=== PATIENT | male | born 1935 | race Caucasian/White ===

== ENCOUNTER 2022-11-29 01:10 | Inpatient (IN) | payer MEDICARE, OTHER ==
[~2022-11-29] VITALS: Ht 175.3 cm; Wt 92.9 kg
[~2022-11-29 01:10] MED LIST: ASPI-1071 PO; ATOR20TA PO; KEP500T PO; LISI20TA28 PO; NOR5T MT; VARD20TA39 PO
[2022-11-29 01:58] LABS: BASOPHILS % (AUTO) 0.3 % (0-1); EOSINOPHILS % (AUTO) 0.3 % (0-6); HEMATOCRIT 47.4 % (42.0-52.0); HEMOGLOBIN 15.6 g/dl (14.0-17.9); LYMPHOCYTES # (AUTO) 0.7 X10'3 (1.1-4.8); LYMPHOCYTES % (AUTO) 5.3 % (21-51); MEAN CORPUSCULAR HEMOGLOBIN 31.7 PG (27.0-31.0); MEAN CORPUSCULAR HGB CONC 32.8 g/dL (33.0-36.5); MEAN CORPUSCULAR VOLUME 96.6 FL (78-98); MEAN PLATELET VOLUME 9.6 FL (7.4-10.4); MONOCYTES # (AUTO) 1.3 X10'3 (0-0.9); MONOCYTES % (AUTO) 9.8 % (2-12); NEUTROPHILS # (AUTO) 10.8 X10'3 (1.8-7.7); NEUTROPHILS % (AUTO) 84.3 % (42-75); PLATELET COUNT 165 X10'3 (140-440); RED BLOOD COUNT 4.91 X10'6 (4.70-6.10); RED CELL DISTRIBUTION WIDTH 13.9 % (11.5-14.5); WHITE BLOOD COUNT 12.8 X10'3 (4.5-11.0)
[2022-11-29] MEDS ORDERED: dexamethasone sod phosphate 10mg/ml inj IV STA (02:07)
[2022-11-29] MEDS ORDERED: ipratropium/albuterol 3ml nebule NEB ONE (02:10)
[2022-11-29 02:18] LABS: D-DIMER 0.97 MG/L FEU (0-0.50)
[2022-11-29] MEDS ORDERED: CefTRIAXone 2gm/D5W 50ml BAG 50 ML IV ONE (02:20)
[2022-11-29 02:25] LABS: ALANINE AMINOTRANSFERASE 20 U/L (12-78); ALBUMIN 4.2 G/DL (3.4-5.0); ALBUMIN/GLOBULIN RATIO 1.2 (1.1-1.5); ALKALINE PHOSPHATASE 93 IU/L (46-116); ANION GAP 12 (8-16); ASPARTATE AMINO TRANSFERASE 14 U/L (10-37); BILIRUBIN,TOTAL 1.1 MG/DL (0.1-1.0); BLOOD UREA NITROGEN 20 MG/DL (7-18); BUN/CREATININE RATIO 17.2 (5.4-32.0); CALCIUM 8.9 MG/DL (8.5-10.1); CHLORIDE 104 MMOL/L (99-107); CREATININE 1.16 MG/DL (0.60-1.10); GLUCOSE 113 MG/DL (70-104); POTASSIUM 3.8 MMOL/L (3.5-5.1); SODIUM 143 MMOL/L (135-145); TOTAL PROTEIN 7.7 G/DL (6.4-8.2); eGFR 60 ML/MIN
[2022-11-29 02:31] LABS: C-REACTIVE PROTEIN 8.37 MG/DL (0.0-0.5); LACTATE DEHYDROGENASE 185 U/L (85-227)
[2022-11-29 02:34] LABS: FERRITIN 367 NG/ML (26-388)
[2022-11-29] MEDS ORDERED: normal saline 1000ml 1,000 ML IV ONE ×2 (02:35→02:55)
[2022-11-29] MEDS ORDERED: iohexol 350MG/ML 100ml bottle IV ONE (02:48)
[2022-11-29] MEDS ORDERED: normal saline 1000ml 1,000 ML IV SCH (02:50)
[2022-11-29] MEDS ORDERED: MULT-1085 PO (04:15)
[2022-11-29] MEDS ORDERED: ASPI-1071 PO (04:19)
[2022-11-29] MEDS ORDERED: ATOR20TA10 PO (04:19)
[2022-11-29] MEDS ORDERED: ATOR20TA66 PO (04:20)
[2022-11-29] MEDS ORDERED: magnesium Cl slow-release 64mg tablet PO PRN (04:25)
[2022-11-29] MEDS ORDERED: potassium Cl 40MEQ/1/2NS 520ml 520 ML IV PRN (04:25)
[2022-11-29] MEDS ORDERED: ondansetron/PF 4mg/2ml inj IV PRN (04:25)
[2022-11-29] MEDS ORDERED: mag hydrox/Alum hydrox/simeth 30ml oral suspension PO PRN (04:25)
[2022-11-29] MEDS ORDERED: PERFLUTREN PROTEIN-A MICROSPHR (Optison) 0.22 MG/ML 3ML VIAL IV ONE (04:25)
[2022-11-29] MEDS ORDERED: magnesium 4gm in 100ml NS 100 ML IV PRN (04:25)
[2022-11-29] MEDS ORDERED: acetaminophen 325mg tablet PO PRN (04:25)
[2022-11-29] MEDS ORDERED: magnesium hydroxide 30ml (MOM) UD suspension PO PRN (04:25)
[2022-11-29] MEDS ORDERED: potassium Cl 20 mEq SR tablet PO PRN ×2 (04:25)
[2022-11-29] MEDS: normal saline 1000ml 1,000 ML IV SCH ×2 (04:31→20:31)
[2022-11-29 06:50] LABS: POTASSIUM 4.1 MMOL/L (3.5-5.1)
[2022-11-29] MEDS ORDERED: dexamethasone inj 6 MG in dextrose 5%-water 100 ML IV SCH (08:00)
[2022-11-29] MEDS: K and/or MAG REPLACEMENT MC SCH ×2 (08:00→20:00)
[2022-11-29 08:24] LABS: CLARITY,URINE SLIGHTLY CLOUDY (Clear); COLOR,URINE YELLOW (Yellow); GLUCOSE, URINE NEGATIVE (Neg); KETONES,URINE TRACE mg/dl (Neg); LEUKOCYTE ESTERASE ,URINE NEGATIVE (Neg); NITRITES, URINE NEGATIVE (Neg); OCCULT BLOOD,URINE TRACE-INTACT (Neg); PH,URINE 5.5 (4.8-8.0); PROTEIN,URINE TRACE mg/dl (Neg); UROBILINOGEN,URINE 0.2 E.U/dL (0.2-1.0)
[2022-11-29 08:31] LABS: UA COLLECTION TYPE CLN CATCH MIDSTREAM
[2022-11-29 08:34] LABS: MUCUS STRANDS FEW /LPF (Neg); SQUAMOUS EPITHELIAL CELL,UR FEW /LPF (FEW)
[2022-11-29 08:38] LABS: BACTERIA,URINE FEW /HPF (Neg); TRANSITIONAL EPI CELLS,URINE FEW /HPF
[2022-11-29 08:39] LABS: RBC,URINE 0-2 /HPF (0-2); WBC,URINE 0-4 /HPF (0-4)
[2022-11-29] MEDS: heparin, porcine 5000 units/ml vial SQ SCH ×2 (08:45→20:32)
[2022-11-29] MEDS: dexamethasone 4mg/ml inj IV SCH ×2 (08:46→20:32)
[2022-11-29] MEDS: multivitamins, therapeutics tablet PO SCH (08:47)
[2022-11-29] MEDS: docusate sod 100mg capsule PO SCH ×2 (08:47→20:31)
[2022-11-29] MEDS: aspirin 81mg, enteric-coated 1 TAB TABLET.DR PO SCH (08:47)
[2022-11-29] MEDS: atorvastatin 20mg tablet PO SCH (08:48)
[2022-11-29] MEDS: lisinopril 20mg tablet PO SCH (08:48)
--- NOTE | 2022-11-29 09:36 | NUR ---
Oxygen test done for patient. O2 nasal canula removed to check how patient is oxegenating on room air. After two minutes without oxygen treatment patients O2 sat dropped to 88. Patient was able to take a deep breath without coughing. Patient Began to purse his lips. Lips began to have a blue tint after 6 minutes without oxygen treatment. Oxygen test done while patient was sitting up in bed. Oxygen was reapplied to patient. O2 sat recovered to 94 after 3L of oxygen was placed on patient. Dr. Momin paged. PCU floor refusing to take patient stating, "we don't have a reverse isolation room. We are trying to see if he can go to the surgical floor or be discharged". Patient preferes to be discharged. He does not have access to oxygen at home.
[2022-11-29] MEDS ORDERED: REMDESIVIR INJ 200 MG in normal saline 100ml IV soln 100 ML IV ONE (09:40)
[2022-11-29 10:59] VITALS: BP 147/68
--- NOTE | 2022-11-29 14:14 | NUR ---
O2 Sat at rest on room air:__84_% If below 89%: Recovery O2 Sat at rest on __3_LPM:__89_%:___94% via NC (mask/nasal cannula, etc..) No further documentation is necessary. If O2 Sat did not drop below 89% on room air,ambulate patient on room air. O2 Sat while ambulating on room air:___% Recovery O2 Sat while ambulating on ___LPM:___% No further documentation is necessary. If patient does not drop below 89% while ambulating, he/she does not qualify for home O2.
[2022-11-29] MEDS ORDERED: NIRM1TAB PO (14:47)
[2022-11-29] MEDS ORDERED: OCUVITE PO (14:49)
--- NOTE | 2022-11-29 15:27 | NUR ---
Have permission from pt to speak with Orin, #[phone]. Called and answered all questions satisfactorily.
--- NOTE | 2022-11-29 18:02 | NUR ---
Pt self d/c L forearm IV. Blood on floor and linens. This RN cleaned floor and linen change. Will H/O to noc shift. MRSA sent to lab.
--- NOTE | 2022-11-29 18:25 | NUR ---
Patient in room [facility]. I have received report from YESICA Bledsoe and had the opportunity to ask questions and assume patient care.
--- NOTE | 2022-11-29 18:29 | NUR ---
Gave H/O report to Kiersten in Surgical to assume care.
[2022-11-29 19:15] VITALS: BP 146/68
[2022-11-29 22:00] VITALS: BP 155/85
[2022-11-30 01:30] VITALS: BP 148/92
--- NOTE | 2022-11-30 01:35 | NUR ---
notified Dr. Martines regarding pt going into A flutter, when previously was sinus rhythm. Vital signs taken, pt assessed, was sleeping and is gone back to sleep. Dr. Martines did not want any interventions performed. pt asleep and appears to be in NO distress.
[2022-11-30 03:10] VITALS: BP 136/94
[2022-11-30 04:42] LABS: BASOPHILS % (AUTO) 0 % (0-1); EOSINOPHILS % (AUTO) 0 % (0-6); HEMATOCRIT 44.1 % (42.0-52.0); HEMOGLOBIN 14.5 g/dl (14.0-17.9); LYMPHOCYTES # (AUTO) 0.4 X10'3 (1.1-4.8); LYMPHOCYTES % (AUTO) 3.4 % (21-51); MEAN CORPUSCULAR HEMOGLOBIN 31.5 PG (27.0-31.0); MEAN CORPUSCULAR HGB CONC 32.8 g/dL (33.0-36.5); MEAN CORPUSCULAR VOLUME 96.1 FL (78-98); MEAN PLATELET VOLUME 9.7 FL (7.4-10.4); MONOCYTES # (AUTO) 0.5 X10'3 (0-0.9); MONOCYTES % (AUTO) 3.6 % (2-12); NEUTROPHILS # (AUTO) 12.1 X10'3 (1.8-7.7); PLATELET COUNT 181 X10'3 (140-440); RED CELL DISTRIBUTION WIDTH 13.5 % (11.5-14.5)
[2022-11-30 04:52] LABS: D-DIMER 0.48 MG/L FEU (0-0.50)
[2022-11-30 04:57] LABS: ALANINE AMINOTRANSFERASE 18 U/L (12-78); ALBUMIN 3.4 G/DL (3.4-5.0); ALKALINE PHOSPHATASE 77 IU/L (46-116); ANION GAP 10 (8-16); ASPARTATE AMINO TRANSFERASE 29 U/L (10-37); BILIRUBIN,TOTAL 0.8 MG/DL (0.1-1.0); BLOOD UREA NITROGEN 25 MG/DL (7-18); C-REACTIVE PROTEIN 9.32 MG/DL (0.0-0.5); CALCIUM 8.7 MG/DL (8.5-10.1); CHLORIDE 106 MMOL/L (99-107); GLUCOSE 178 MG/DL (70-104); LACTATE DEHYDROGENASE 176 U/L (85-227); MAGNESIUM 2.1 MG/DL (1.5-2.4); PHOSPHORUS 3.3 MG/DL (2.3-4.5); POTASSIUM 3.8 MMOL/L (3.5-5.1); SODIUM 142 MMOL/L (135-145); TOTAL CARBON DIOXIDE 26.4 MMOL/L (24-32); TOTAL PROTEIN 6.7 G/DL (6.4-8.2); eGFR 71 ML/MIN
[2022-11-30 06:00] VITALS: BP 135/85
--- NOTE | 2022-11-30 06:11 | NUR ---
Problems reprioritized. Patient report given, questions answered & plan of care reviewed with YESICA Guevara.
[2022-11-30] MEDS: K and/or MAG REPLACEMENT MC SCH ×2 (08:00→18:41)
[2022-11-30] MEDS: docusate sod 100mg capsule PO SCH ×2 (08:45→20:00)
[2022-11-30] MEDS: lisinopril 20mg tablet PO SCH (08:45)
[2022-11-30] MEDS: atorvastatin 20mg tablet PO SCH (08:45)
[2022-11-30] MEDS: heparin, porcine 5000 units/ml vial SQ SCH (08:45)
[2022-11-30] MEDS: REMDESIVIR INJ 100 MG in normal saline 100ml IV soln 100 ML IV SCH (08:46)
[2022-11-30] MEDS: multivitamins, therapeutics tablet PO SCH (08:46)
[2022-11-30] MEDS: aspirin 81mg, enteric-coated 1 TAB TABLET.DR PO SCH (08:46)
[2022-11-30] MEDS: dexamethasone 4mg/ml inj IV SCH ×2 (08:48→20:48)
[2022-11-30] MEDS: apixaban 5mg tablet PO SCH ×2 (13:06→20:48)
[2022-11-30 14:47] VITALS: BP 115/83
[2022-11-30 18:00] VITALS: BP 145/79
--- NOTE | 2022-11-30 18:25 | NUR ---
Problems reprioritized. Patient report given, questions answered & plan of care reviewed with YESICA Porter.
[2022-11-30 22:00] VITALS: BP 117/93
[2022-12-01] MEDS: normal saline 1000ml 1,000 ML IV SCH ×2 (05:19→16:21)
[2022-12-01 07:00] VITALS: BP 117/90
[2022-12-01 07:06] LABS: BASOPHILS % (AUTO) 0.1 % (0-1); EOSINOPHILS % (AUTO) 0 % (0-6); HEMATOCRIT 43.4 % (42.0-52.0); HEMOGLOBIN 14.4 g/dl (14.0-17.9); LYMPHOCYTES # (AUTO) 0.5 X10'3 (1.1-4.8); LYMPHOCYTES % (AUTO) 3.8 % (21-51); MEAN CORPUSCULAR HEMOGLOBIN 31.9 PG (27.0-31.0); MEAN CORPUSCULAR HGB CONC 33.2 g/dL (33.0-36.5); MEAN CORPUSCULAR VOLUME 95.9 FL (78-98); MEAN PLATELET VOLUME 9.8 FL (7.4-10.4); MONOCYTES # (AUTO) 0.6 X10'3 (0-0.9); MONOCYTES % (AUTO) 4.3 % (2-12); NEUTROPHILS # (AUTO) 12.8 X10'3 (1.8-7.7); NEUTROPHILS % (AUTO) 91.8 % (42-75); PLATELET COUNT 193 X10'3 (140-440); RED BLOOD COUNT 4.53 X10'6 (4.70-6.10); RED CELL DISTRIBUTION WIDTH 13.5 % (11.5-14.5)
[2022-12-01 07:15] LABS: D-DIMER 0.44 MG/L FEU (0-0.50)
[2022-12-01 07:23] LABS: ALANINE AMINOTRANSFERASE 28 U/L (12-78); ALBUMIN 3.1 G/DL (3.4-5.0); ALKALINE PHOSPHATASE 70 IU/L (46-116); ANION GAP 5 (8-16); ASPARTATE AMINO TRANSFERASE 28 U/L (10-37); BILIRUBIN,TOTAL 0.6 MG/DL (0.1-1.0); BLOOD UREA NITROGEN 37 MG/DL (7-18); BUN/CREATININE RATIO 32.7 (5.4-32.0); C-REACTIVE PROTEIN 3.82 MG/DL (0.0-0.5); CALCIUM 8.4 MG/DL (8.5-10.1); CHLORIDE 107 MMOL/L (99-107); CREATININE 1.13 MG/DL (0.60-1.10); GLUCOSE 157 MG/DL (70-104); LACTATE DEHYDROGENASE 161 U/L (85-227); MAGNESIUM 2.1 MG/DL (1.5-2.4); PHOSPHORUS 3.6 MG/DL (2.3-4.5); POTASSIUM 4.1 MMOL/L (3.5-5.1); SODIUM 141 MMOL/L (135-145); TOTAL CARBON DIOXIDE 29.3 MMOL/L (24-32); TOTAL PROTEIN 6.3 G/DL (6.4-8.2); eGFR 62 ML/MIN
[2022-12-01] MEDS: multivitamins, therapeutics tablet PO SCH (07:33)
[2022-12-01] MEDS: apixaban 5mg tablet PO SCH ×2 (07:33→20:03)
[2022-12-01] MEDS: lisinopril 20mg tablet PO SCH (07:33)
[2022-12-01] MEDS: aspirin 81mg, enteric-coated 1 TAB TABLET.DR PO SCH (07:33)
[2022-12-01] MEDS: atorvastatin 20mg tablet PO SCH (07:33)
[2022-12-01] MEDS: docusate sod 100mg capsule PO SCH ×2 (07:34→20:03)
[2022-12-01] MEDS: REMDESIVIR INJ 100 MG in normal saline 100ml IV soln 100 ML IV SCH (07:34)
[2022-12-01] MEDS: dexamethasone 4mg/ml inj IV SCH ×2 (07:34→20:03)
[2022-12-01] MEDS: K and/or MAG REPLACEMENT MC SCH ×2 (08:00→18:45)
[2022-12-01 11:08] VITALS: BP 117/66
[2022-12-01 18:00] VITALS: BP 155/92
--- NOTE | 2022-12-01 18:20 | NUR ---
Problems reprioritized. Patient report given, questions answered & plan of care reviewed with YESICA Muhammad.
[2022-12-01 22:03] VITALS: BP 157/107
[2022-12-02 02:00] VITALS: BP 154/113
--- NOTE | 2022-12-02 06:11 | NUR ---
Problems reprioritized. Patient report given, questions answered & plan of care reviewed with YESICA Guevara.
[2022-12-02 07:00] VITALS: BP 166/89
[2022-12-02 07:54] LABS: BASOPHILS % (AUTO) 0.1 % (0-1); EOSINOPHILS % (AUTO) 0 % (0-6); HEMATOCRIT 43.7 % (42.0-52.0); HEMOGLOBIN 14.7 g/dl (14.0-17.9); LYMPHOCYTES # (AUTO) 0.5 X10'3 (1.1-4.8); LYMPHOCYTES % (AUTO) 4.1 % (21-51); MEAN CORPUSCULAR HEMOGLOBIN 31.9 PG (27.0-31.0); MEAN CORPUSCULAR HGB CONC 33.6 g/dL (33.0-36.5); MEAN CORPUSCULAR VOLUME 95.2 FL (78-98); MEAN PLATELET VOLUME 9.2 FL (7.4-10.4); MONOCYTES # (AUTO) 0.6 X10'3 (0-0.9); MONOCYTES % (AUTO) 5.4 % (2-12); NEUTROPHILS # (AUTO) 10.2 X10'3 (1.8-7.7); NEUTROPHILS % (AUTO) 90.4 % (42-75); PLATELET COUNT 204 X10'3 (140-440); RED CELL DISTRIBUTION WIDTH 13.5 % (11.5-14.5); WHITE BLOOD COUNT 11.3 X10'3 (4.5-11.0)
[2022-12-02 08:00] LABS: D-DIMER 0.45 MG/L FEU (0-0.50)
[2022-12-02] MEDS: K and/or MAG REPLACEMENT MC SCH (08:00)
[2022-12-02] MEDS: docusate sod 100mg capsule PO SCH (08:00)
[2022-12-02] MEDS: aspirin 81mg, enteric-coated 1 TAB TABLET.DR PO SCH (08:00)
[2022-12-02] MEDS: REMDESIVIR INJ 100 MG in normal saline 100ml IV soln 100 ML IV SCH (08:00)
[2022-12-02] MEDS: lisinopril 20mg tablet PO SCH (08:00)
[2022-12-02] MEDS: multivitamins, therapeutics tablet PO SCH (08:01)
[2022-12-02] MEDS: atorvastatin 20mg tablet PO SCH (08:01)
[2022-12-02] MEDS: apixaban 5mg tablet PO SCH (08:01)
[2022-12-02] MEDS: dexamethasone 4mg/ml inj IV SCH (08:02)
[2022-12-02 08:15] LABS: ALANINE AMINOTRANSFERASE 53 U/L (12-78); ALBUMIN 3.2 G/DL (3.4-5.0); ALKALINE PHOSPHATASE 70 IU/L (46-116); ANION GAP 6 (8-16); ASPARTATE AMINO TRANSFERASE 29 U/L (10-37); BILIRUBIN,TOTAL 0.6 MG/DL (0.1-1.0); BLOOD UREA NITROGEN 33 MG/DL (7-18); BUN/CREATININE RATIO 32.7 (5.4-32.0); C-REACTIVE PROTEIN 2.21 MG/DL (0.0-0.5); CALCIUM 8.3 MG/DL (8.5-10.1); CHLORIDE 106 MMOL/L (99-107); CREATININE 1.01 MG/DL (0.60-1.10); GLUCOSE 148 MG/DL (70-104); LACTATE DEHYDROGENASE 225 U/L (85-227); MAGNESIUM 2.2 MG/DL (1.5-2.4); PHOSPHORUS 3.4 MG/DL (2.3-4.5); POTASSIUM 4.3 MMOL/L (3.5-5.1); SODIUM 140 MMOL/L (135-145); TOTAL CARBON DIOXIDE 27.8 MMOL/L (24-32); TOTAL PROTEIN 6.3 G/DL (6.4-8.2); eGFR 70 ML/MIN
[2022-12-02 11:32] VITALS: BP 167/97
--- NOTE | 2022-12-02 11:34 | NUR ---
O2 Sat at rest on room air:86% If below 89%: Recovery O2 Sat at rest on 2LPM:94%:via nasal cannula No further documentation is necessary. If O2 Sat did not drop below 89% on room air,ambulate patient on room air. O2 Sat while ambulating on room air:___% Recovery O2 Sat while ambulating on ___LPM:___% No further documentation is necessary. If patient does not drop below 89% while ambulating, he/she does not qualify for home O2.
[2022-12-02] MEDS ORDERED: PRED10TA PO (13:12)
--- NOTE | 2022-12-02 14:39 | NUR ---
Patient stable and appropriate for discharge home with his . IV and satellite project site monitor removed. All belongings gathered from room. All discharge instructions and education given and reviewed with patient, all questions answered. Oxygen delivered to bedside. educated patient and his tatum on instructions, return demonstration completed. New RX e-scripted to preferred pharmacy.
== END 2022-12-02 14:25 | disposition home or self-care (01) | DRG 177 ==
LOC: ER 01:12 → ED HOLD 04:27 → EDBEDREQ 05:25 → PCU 3S 10:41 → SUR 3N 19:15
PROVIDERS: ADMIT Internal Medicine; ATTEND Family Medicine
PROC: XW033E5 Introduction of Remdesivir Anti-infective into Peripheral Vein, Percutaneous Approach, New Technology Group 5 (ICD-10-PCS; principal; 2022-11-29)
PROC: B32T1ZZ Computerized Tomography (CT Scan) of Left Pulmonary Artery using Low Osmolar Contrast (ICD-10-PCS; 2022-11-29)
PROC: B3201ZZ Computerized Tomography (CT Scan) of Thoracic Aorta using Low Osmolar Contrast (ICD-10-PCS; 2022-11-29)
PROC: B32S1ZZ Computerized Tomography (CT Scan) of Right Pulmonary Artery using Low Osmolar Contrast (ICD-10-PCS; 2022-11-29)
DX: U07.1 COVID-19 (principal); J12.82 Pneumonia due to coronavirus disease 2019; J96.01 Acute respiratory failure with hypoxia; N17.0 Acute kidney failure with tubular necrosis; I10 Essential (primary) hypertension; G47.30 Sleep apnea, unspecified; M17.0 Bilateral primary osteoarthritis of knee; Z86.73 Personal history of transient ischemic attack (TIA), and cerebral infarction without residual deficits; Z87.891 Personal history of nicotine dependence; Z90.49 Acquired absence of other specified parts of digestive tract; Z79.899 Other long term (current) drug therapy; Z79.82 Long term (current) use of aspirin
CPT/HCPCS: 36415; 71045; 71275; 80053; 81001; 82728; 83605; 83615; 83735; 83880; 84100; 84132; 84145; 84484; 85025; 85379; 85384; 86140; 87040; 87081; 87502; 87503; 87635; 93005; 93306; 94640; 94760; 96365; 96375; 99285; C9803; G0378; J0696; J1100; J1644; J3490; J7030; Q9967

== ENCOUNTER 2023-04-26 15:20 | Emergency (ER) | payer MEDICARE, OTHER ==
[~2023-04-26] VITALS: Ht 175.3 cm; Wt 84.0 kg
[~2023-04-26 15:20] MED LIST changes: -ATOR20TA PO; -KEP500T PO; +MULT-1085 PO; -NOR5T MT; +OCUVITE PO; +PRED10TA PO
--- NOTE | 2023-04-26 21:22 | NUR ---
dr connors at bedside and notified of high bp.
[2023-04-26] MEDS ORDERED: ondansetron 4mg rapidly disintigrating tab PO ONE (21:30)
[2023-04-26] MEDS ORDERED: morphine 4 MG/ML inj SYRINge IM ONE (21:30)
[2023-04-26 22:20] LABS: BASOPHILS % (AUTO) 0.4 % (0-1); EOSINOPHILS # (AUTO) 0.2 X10'3 (0-0.9); EOSINOPHILS % (AUTO) 2.3 % (0-6); HEMATOCRIT 48.4 % (42.0-52.0); LYMPHOCYTES # (AUTO) 1.1 X10'3 (1.1-4.8); MEAN CORPUSCULAR HEMOGLOBIN 31.7 PG (27.0-31.0); MEAN CORPUSCULAR HGB CONC 33.1 g/dL (33.0-36.5); MEAN CORPUSCULAR VOLUME 95.6 FL (78-98); MEAN PLATELET VOLUME 8.9 FL (7.4-10.4); MONOCYTES # (AUTO) 0.8 X10'3 (0-0.9); MONOCYTES % (AUTO) 10.1 % (2-12); NEUTROPHILS # (AUTO) 5.6 X10'3 (1.8-7.7); NEUTROPHILS % (AUTO) 73.2 % (42-75); PLATELET COUNT 186 X10'3 (140-440); RED BLOOD COUNT 5.06 X10'6 (4.70-6.10); RED CELL DISTRIBUTION WIDTH 13.2 % (11.5-14.5); WHITE BLOOD COUNT 7.7 X10'3 (4.5-11.0)
[2023-04-26] MEDS ORDERED: HYDR-3965 PO (22:28)
[2023-04-26 22:34] LABS: ALANINE AMINOTRANSFERASE 18 U/L (12-78); ALBUMIN 4.3 G/DL (3.4-5.0); ALBUMIN/GLOBULIN RATIO 1.3 (1.1-1.5); ALKALINE PHOSPHATASE 111 IU/L (46-116); ANION GAP 8 (8-16); ASPARTATE AMINO TRANSFERASE 11 U/L (10-37); BILIRUBIN,TOTAL 0.3 MG/DL (0.1-1.0); BLOOD UREA NITROGEN 22 MG/DL (7-18); CHLORIDE 104 MMOL/L (99-107); CREATININE 1.16 MG/DL (0.60-1.10); GLUCOSE 127 MG/DL (70-104); POTASSIUM 4.1 MMOL/L (3.5-5.1); SODIUM 142 MMOL/L (135-145); TOTAL CARBON DIOXIDE 30.1 MMOL/L (24-32); TOTAL PROTEIN 7.7 G/DL (6.4-8.2); eGFR 60 ML/MIN
[2023-04-26 22:35] LABS: CLARITY,URINE CLEAR (Clear); COLOR,URINE STRAW (Yellow); GLUCOSE, URINE NEGATIVE (Neg); KETONES,URINE NEGATIVE (Neg); LEUKOCYTE ESTERASE ,URINE TRACE (Neg); NITRITES, URINE NEGATIVE (Neg); OCCULT BLOOD,URINE NEGATIVE (Neg); PROTEIN,URINE NEGATIVE (Neg); UROBILINOGEN,URINE 0.2 E.U/dL (0.2-1.0)
[2023-04-26 22:47] LABS: SQUAMOUS EPITHELIAL CELL,UR FEW /LPF (FEW); UA COLLECTION TYPE URINAL
[2023-04-26 22:48] LABS: BACTERIA,URINE NONE SEEN /HPF (Neg); RBC,URINE 0-2 /HPF (0-2); WBC,URINE 0-4 /HPF (0-4)
[2023-04-26 22:58] VITALS: BP 185/92
== END 2023-04-26 22:59 | disposition home or self-care (01) ==
LOC: ER 15:21
DX: S39.012A Strain of muscle, fascia and tendon of lower back, initial encounter (principal); X58.XXXA Exposure to other specified factors, initial encounter; Y93.89 Activity, other specified; Y92.89 Other specified places as the place of occurrence of the external cause; Y99.8 Other external cause status; I10 Essential (primary) hypertension; Z79.899 Other long term (current) drug therapy
CPT/HCPCS: 36415; 74176; 80053; 81001; 85025; 87088; 96372; 99285; J2270

== ENCOUNTER 2024-03-26 12:47 | Emergency (ER) | payer MEDICARE, OTHER ==
[~2024-03-26] VITALS: Ht 175.3 cm; Wt 90.9 kg
[2024-03-26 12:58] VITALS: TEMP 98.2
[2024-03-26 15:10] VITALS: BP 140/83; PULSE 80; RESP 14; O2SAT 97
== END 2024-03-26 15:12 | disposition home or self-care (01) ==
LOC: ER 12:48
DX: J44.9 Chronic obstructive pulmonary disease, unspecified (principal); R09.02 Hypoxemia; I10 Essential (primary) hypertension; Z79.82 Long term (current) use of aspirin; Z79.51 Long term (current) use of inhaled steroids; Z79.899 Other long term (current) drug therapy; Z86.73 Personal history of transient ischemic attack (TIA), and cerebral infarction without residual deficits; Z90.49 Acquired absence of other specified parts of digestive tract; Z98.890 Other specified postprocedural states; Z72.89 Other problems related to lifestyle
CPT/HCPCS: 99284

== ENCOUNTER 2024-07-22 11:40 | Inpatient (IN) | payer MEDICARE, OTHER ==
[~2024-07-22] VITALS: Ht 175.3 cm; Wt 90.9 kg
[~2024-07-22 11:40] MED LIST changes: +CEPH500C2 PO; +LACT1CAP76 PO; -PRED10TA PO; +tamsulosin capsule PO
[2024-07-22 12:47] LABS: BASOPHILS % (AUTO) 0.1 % (0-1); EOSINOPHILS # (AUTO) 0.2 X10'3 (0-0.9); EOSINOPHILS % (AUTO) 0.7 % (0-6); HEMATOCRIT 43.6 % (42.0-52.0); HEMOGLOBIN 14.3 g/dl (14.0-17.9); LYMPHOCYTES # (AUTO) 0.4 X10'3 (1.1-4.8); LYMPHOCYTES % (AUTO) 1.5 % (21-51); MEAN CORPUSCULAR HEMOGLOBIN 31.7 PG (27.0-31.0); MEAN CORPUSCULAR HGB CONC 32.7 g/dL (33.0-36.5); MEAN CORPUSCULAR VOLUME 96.9 FL (78-98); MEAN PLATELET VOLUME 9.5 FL (7.4-10.4); MONOCYTES # (AUTO) 1.2 X10'3 (0-0.9); MONOCYTES % (AUTO) 4.3 % (2-12); NEUTROPHILS # (AUTO) 26.1 X10'3 (1.8-7.7); NEUTROPHILS % (AUTO) 93.4 % (42-75); PLATELET COUNT 239 X10'3 (140-440); RED CELL DISTRIBUTION WIDTH 13.7 % (11.5-14.5)
[2024-07-22 12:50] LABS: WHITE BLOOD COUNT 27.9 X10'3 (4.5-11.0)
[2024-07-22 13:00] LABS: ANION GAP 9 (8-16); BLOOD UREA NITROGEN 44 MG/DL (7-18); BUN/CREATININE RATIO 17.9 (10.0-20.0); CHLORIDE 102 MMOL/L (99-107); CREATININE 2.46 MG/DL (0.60-1.10); GLUCOSE 180 MG/DL (70-104); POTASSIUM 4.1 MMOL/L (3.5-5.1); SODIUM 139 MMOL/L (135-145); TOTAL CARBON DIOXIDE 27.8 MMOL/L (24-32)
[2024-07-22 13:01] LABS: ALANINE AMINOTRANSFERASE 6 U/L (12-78); ALBUMIN 3.4 G/DL (3.4-5.0); ALBUMIN/GLOBULIN RATIO 0.9 (1.1-1.5); ALKALINE PHOSPHATASE 75 IU/L (46-116); ASPARTATE AMINO TRANSFERASE 7 U/L (10-37); BILIRUBIN,TOTAL 1.2 MG/DL (0.1-1.0); CALCIUM 8.9 MG/DL (8.5-10.1); TOTAL PROTEIN 7.3 G/DL (6.4-8.2); eCRCL 21 ML/MIN; eGFR 25 ML/MIN
[2024-07-22 13:11] LABS: PRO BRAIN NATRIURETIC PEPTIDE 2246 PG/ML (0-450); TOTAL CELLS COUNTED 100
[2024-07-22 13:12] LABS: BURR CELLS 1+; PLATELET ESTIMATE NORMAL
[2024-07-22] MEDS: normal saline 1000ML IV soln IV ONE (13:18)
[2024-07-22 16:59] LABS: BILIRUBIN,URINE SMALL (Neg); CLARITY,URINE CLOUDY (Clear); COLOR,URINE YELLOW (Yellow); GLUCOSE, URINE NEGATIVE (Neg); KETONES,URINE TRACE mg/dl (Neg); LEUKOCYTE ESTERASE ,URINE SMALL (Neg); NITRITES, URINE NEGATIVE (Neg); OCCULT BLOOD,URINE TRACE-INTACT (Neg); PH,URINE 5.5 (4.8-8.0); PROTEIN,URINE TRACE mg/dl (Neg); UROBILINOGEN,URINE 0.2 E.U/dL (0.2-1.0)
[2024-07-22 17:02] LABS: UA COLLECTION TYPE CLN CATCH MIDSTREAM
[2024-07-22 17:04] LABS: HYALINE CASTS >30 /LPF (NEGATIVE); SQUAMOUS EPITHELIAL CELL,UR MODERATE /LPF (FEW)
[2024-07-22 17:05] LABS: WBC,URINE 20-30 /HPF (0-4)
[2024-07-22 17:06] LABS: BACTERIA,URINE 1+ /HPF (Neg); TRANSITIONAL EPI CELLS,URINE MANY /HPF
[2024-07-22 17:07] LABS: MUCUS STRANDS FEW /LPF (Neg)
[2024-07-22] MEDS: CefTRIAXone 2gm/D5W 50ml BAG 50 ML IV ONE (19:02)
[2024-07-22] MEDS ORDERED: potassium Cl 20 mEq SR tablet PO PRN ×2 (23:05)
[2024-07-22] MEDS ORDERED: magnesium sulf-water 2g/50mL 50 ML IV PRN (23:05)
[2024-07-22] MEDS ORDERED: potassium Cl 40MEQ/1/2NS 520ml 520 ML IV PRN (23:05)
[2024-07-22] MEDS ORDERED: mag hydrox/Alum hydrox/simeth 30ml oral suspension PO PRN (23:05)
[2024-07-22] MEDS ORDERED: magnesium sulf-water 4G/100mL 100 ML IV PRN (23:05)
[2024-07-22] MEDS ORDERED: magnesium Cl slow-release 64mg tablet PO PRN (23:05)
[2024-07-22] MEDS ORDERED: morphine 2 MG/ML inj. syringe IV PRN ×2 (23:05)
[2024-07-22] MEDS ORDERED: ondansetron/PF 4mg/2ml inj IV PRN (23:05)
[2024-07-22] MEDS ORDERED: magnesium hydroxide 30ml (MOM) UD suspension PO PRN (23:05)
[2024-07-22] MEDS: normal saline 1000ml 1,000 ML IV SCH (23:28)
[2024-07-22 23:33] LABS: HEMOGLOBIN A1C 5.4 % (4.5-6.2)
[2024-07-22] MEDS ORDERED: ipratropium/albuterol 3ml nebule NEB PRN (23:40)
[2024-07-23] VITALS (17 sets, daily range): BP systolic 111–164; BP diastolic 59–81; PULSE 75–103; RESP 14–21; TEMP 97.3–98.6; O2SAT 92–98
[2024-07-23] MEDS: methylPREDNISolone sod succ 125mg/2ml vial IV SCH (01:26)
[2024-07-23] MEDS: ipratropium/albuterol 3ml nebule NEB SCH (03:32)
[2024-07-23] MEDS: HEPARIN DRIP-CARDIAC**PHARMACIST-TO-DOSE IV ONE (06:20)
[2024-07-23] MEDS: MESSAGE TO NURSING IV ONE ×2 (06:40→16:30)
[2024-07-23 07:24] LABS: BASOPHILS % (AUTO) 0 % (0-1); EOSINOPHILS % (AUTO) 0 % (0-6); HEMATOCRIT 36.7 % (42.0-52.0); HEMOGLOBIN 11.9 g/dl (14.0-17.9); LYMPHOCYTES # (AUTO) 0.3 X10'3 (1.1-4.8); LYMPHOCYTES % (AUTO) 1.1 % (21-51); MEAN CORPUSCULAR HEMOGLOBIN 31.1 PG (27.0-31.0); MEAN CORPUSCULAR HGB CONC 32.3 g/dL (33.0-36.5); MEAN CORPUSCULAR VOLUME 96.1 FL (78-98); MEAN PLATELET VOLUME 10.1 FL (7.4-10.4); MONOCYTES # (AUTO) 0.6 X10'3 (0-0.9); MONOCYTES % (AUTO) 2.6 % (2-12); NEUTROPHILS # (AUTO) 23.6 X10'3 (1.8-7.7); NEUTROPHILS % (AUTO) 96.3 % (42-75); PLATELET COUNT 206 X10'3 (140-440); RED BLOOD COUNT 3.82 X10'6 (4.70-6.10); RED CELL DISTRIBUTION WIDTH 13.6 % (11.5-14.5); WHITE BLOOD COUNT 24.6 X10'3 (4.5-11.0)
[2024-07-23 07:27] LABS: BASOPHILS % (AUTO) 0 % (0-1); EOSINOPHILS % (AUTO) 0 % (0-6); HEMATOCRIT 36.7 % (42.0-52.0); HEMOGLOBIN 12.1 g/dl (14.0-17.9); LYMPHOCYTES # (AUTO) 0.3 X10'3 (1.1-4.8); LYMPHOCYTES % (AUTO) 1.3 % (21-51); MEAN CORPUSCULAR HEMOGLOBIN 31.7 PG (27.0-31.0); MEAN CORPUSCULAR VOLUME 96.1 FL (78-98); MEAN PLATELET VOLUME 10.1 FL (7.4-10.4); MONOCYTES # (AUTO) 0.7 X10'3 (0-0.9); NEUTROPHILS # (AUTO) 23.2 X10'3 (1.8-7.7); NEUTROPHILS % (AUTO) 95.7 % (42-75); PLATELET COUNT 206 X10'3 (140-440); RED BLOOD COUNT 3.82 X10'6 (4.70-6.10); RED CELL DISTRIBUTION WIDTH 13.5 % (11.5-14.5); WHITE BLOOD COUNT 24.2 X10'3 (4.5-11.0)
[2024-07-23 07:29] LABS: APTT 28 SECONDS (22-32); INR 1.1 INR; PROTHROMBIN TIME 11.9 SECONDS (9.0-12.0)
[2024-07-23 07:57] LABS: ALANINE AMINOTRANSFERASE 10 U/L (12-78); ALBUMIN 2.7 G/DL (3.4-5.0); ALBUMIN/GLOBULIN RATIO 0.8 (1.1-1.5); ALKALINE PHOSPHATASE 69 IU/L (46-116); ANION GAP 7 (8-16); ASPARTATE AMINO TRANSFERASE 7 U/L (10-37); BILIRUBIN,TOTAL 0.5 MG/DL (0.1-1.0); BLOOD UREA NITROGEN 38 MG/DL (7-18); BUN/CREATININE RATIO 24.1 (10.0-20.0); CHLORIDE 106 MMOL/L (99-107); CHOL/HDL RATIO 2.8 (0.00-4.99); CHOLESTEROL 90 MG/DL (0-200); CREATININE 1.58 MG/DL (0.60-1.10); GLUCOSE 147 MG/DL (70-104); HDL CHOLESTEROL 32 MG/DL (35-60); LDL CHOLESTEROL 47 MG/DL (50-100); POTASSIUM 4.3 MMOL/L (3.5-5.1); SODIUM 137 MMOL/L (135-145); TOTAL CARBON DIOXIDE 24.4 MMOL/L (24-32); TOTAL PROTEIN 6.2 G/DL (6.4-8.2); TRIGLYCERIDES 37 MG/DL (20-135); eCRCL 33 ML/MIN; eGFR 42 ML/MIN
[2024-07-23] MEDS ORDERED: heparin, porcine 5000 units/ml vial SQ SCH (08:00)
[2024-07-23] MEDS: K and/or MAG REPLACEMENT MC SCH (08:00)
[2024-07-23] MEDS ORDERED: apixaban 2.5mg tablet PO SCH (08:00)
[2024-07-23] MEDS: lisinopril 20mg tablet PO SCH (08:05)
[2024-07-23] MEDS: aspirin 81mg, enteric-coated 1 TAB TABLET.DR PO SCH (08:05)
[2024-07-23] MEDS: docusate sod 100mg capsule PO SCH (08:06)
[2024-07-23] MEDS: azithromycin/NS 500mg/250ml 250 ML IV SCH (08:17)
[2024-07-23] MEDS: heparin 10,000 units/1 ML INJ IV ONE (08:20)
[2024-07-23] MEDS: heparin 25,000 UNIT/250ml bag 250 ML IV PRN (08:22)
[2024-07-23] MEDS: heparin 10,000 units/1 ML INJ IV PRN (16:28)
[2024-07-23] MEDS: CefTRIAXone/D5W-Rocephin 1gm 50 ML IV SCH (19:09)
[2024-07-23] MEDS: tamsulosin 0.4mg capsule PO SCH (19:16)
[2024-07-24] VITALS (16 sets, daily range): BP systolic 135–198; BP diastolic 68–95; PULSE 70–112; RESP 15–23; TEMP 97.4–98.2; O2SAT 90–98
[2024-07-24] MEDS: methylPREDNISolone sod succ/PF 40mg inj. IV SCH (02:54)
[2024-07-24] MEDS ORDERED: VIT1CAPS9 PO (06:01)
[2024-07-24] MEDS ORDERED: ALB0.5UD IH (06:02)
[2024-07-24] MEDS: apixaban 2.5mg tablet PO SCH (07:46)
[2024-07-24 07:50] LABS: BASOPHILS % (AUTO) 0 % (0-1); EOSINOPHILS % (AUTO) 0 % (0-6); HEMATOCRIT 33.6 % (42.0-52.0); HEMOGLOBIN 10.9 g/dl (14.0-17.9); LYMPHOCYTES # (AUTO) 0.3 X10'3 (1.1-4.8); LYMPHOCYTES % (AUTO) 1.7 % (21-51); MEAN CORPUSCULAR HEMOGLOBIN 30.8 PG (27.0-31.0); MEAN CORPUSCULAR HGB CONC 32.5 g/dL (33.0-36.5); MEAN CORPUSCULAR VOLUME 94.8 FL (78-98); MEAN PLATELET VOLUME 9.8 FL (7.4-10.4); MONOCYTES # (AUTO) 0.5 X10'3 (0-0.9); MONOCYTES % (AUTO) 3.5 % (2-12); NEUTROPHILS # (AUTO) 14.4 X10'3 (1.8-7.7); NEUTROPHILS % (AUTO) 94.8 % (42-75); PLATELET COUNT 195 X10'3 (140-440); RED BLOOD COUNT 3.54 X10'6 (4.70-6.10); RED CELL DISTRIBUTION WIDTH 13.4 % (11.5-14.5); WHITE BLOOD COUNT 15.1 X10'3 (4.5-11.0)
[2024-07-24 07:57] LABS: ALANINE AMINOTRANSFERASE 11 U/L (12-78); ALBUMIN 2.6 G/DL (3.4-5.0); ALBUMIN/GLOBULIN RATIO 0.7 (1.1-1.5); ALKALINE PHOSPHATASE 65 IU/L (46-116); ANION GAP 7 (8-16); ASPARTATE AMINO TRANSFERASE 14 U/L (10-37); BILIRUBIN,TOTAL 0.3 MG/DL (0.1-1.0); BLOOD UREA NITROGEN 36 MG/DL (7-18); BUN/CREATININE RATIO 28.6 (10.0-20.0); CALCIUM 8.3 MG/DL (8.5-10.1); CHLORIDE 108 MMOL/L (99-107); CREATININE 1.26 MG/DL (0.60-1.10); GLUCOSE 164 MG/DL (70-104); MAGNESIUM 2.1 MG/DL (1.5-2.4); POTASSIUM 3.9 MMOL/L (3.5-5.1); SODIUM 138 MMOL/L (135-145); TOTAL CARBON DIOXIDE 22.8 MMOL/L (24-32); TOTAL PROTEIN 6.2 G/DL (6.4-8.2); eCRCL 41 ML/MIN; eGFR 54 ML/MIN
[2024-07-24] MEDS: hydrALAZINE 20mg/ml inj. IV PRN (12:23)
[2024-07-24] MEDS: hydrALAZINE 20mg/ml inj. IV ONE (15:10)
[2024-07-25] VITALS (31 sets, daily range): BP systolic 154–249; BP diastolic 69–113; PULSE 73–140; RESP 16–28; TEMP 96.8–98.7; O2SAT 84–97
[2024-07-25] MEDS: acetaminophen 325mg tablet PO PRN (00:09)
[2024-07-25] MEDS: hydrALAZINE 20mg/ml inj. IV ONE (04:12)
[2024-07-25] MEDS: furosemide 40mg/4ml inj IV SCH (04:16)
[2024-07-25 04:18] LABS: ABG BASE EXCESS -4.2 mmol/L (-2.0-3.0); ABG HCO3 20.7 mmol/L (21.0-28.0); ABG OXYGEN SATURATION 95.4 % (94.0-98.0); ABG PCO2 (T) 37.1 mmHg (35.0-48.0); ABG PH (T) 7.363 (7.350-7.450); ABG PO2 (T) 74.7 mmHg (83.0-108.0); ALLEN'S TEST POSITIVE; FCOHb 0.4 % (0.5-1.5); FHHb 4.6 % (0.0-5.0); FLOW 10 L/min; FMetHb 0.3 % (0.0-1.5); FO2Hb 94.7 % (94.0-98.0); MODE MASK - BIPAP; PATIENT TEMPERATURE 36.5; TOTAL HEMOGLOBIN 13.9 G/dl (13.5-17.5)
[2024-07-25 04:48] LABS: BASOPHILS % (AUTO) 0.1 % (0-1); EOSINOPHILS % (AUTO) 0.1 % (0-6); HEMATOCRIT 38.8 % (42.0-52.0); HEMOGLOBIN 12.6 g/dl (14.0-17.9); LYMPHOCYTES # (AUTO) 0.4 X10'3 (1.1-4.8); LYMPHOCYTES % (AUTO) 2.1 % (21-51); MEAN CORPUSCULAR HEMOGLOBIN 30.8 PG (27.0-31.0); MEAN CORPUSCULAR HGB CONC 32.4 g/dL (33.0-36.5); MEAN CORPUSCULAR VOLUME 95.1 FL (78-98); MEAN PLATELET VOLUME 9.6 FL (7.4-10.4); MONOCYTES # (AUTO) 0.7 X10'3 (0-0.9); MONOCYTES % (AUTO) 4.2 % (2-12); NEUTROPHILS # (AUTO) 15.4 X10'3 (1.8-7.7); NEUTROPHILS % (AUTO) 93.5 % (42-75); PLATELET COUNT 221 X10'3 (140-440); RED BLOOD COUNT 4.08 X10'6 (4.70-6.10); RED CELL DISTRIBUTION WIDTH 13.8 % (11.5-14.5); WHITE BLOOD COUNT 16.4 X10'3 (4.5-11.0)
[2024-07-25 05:08] LABS: ALANINE AMINOTRANSFERASE 20 U/L (12-78); ALBUMIN/GLOBULIN RATIO 0.8 (1.1-1.5); ALKALINE PHOSPHATASE 74 IU/L (46-116); ANION GAP 11 (8-16); ASPARTATE AMINO TRANSFERASE 17 U/L (10-37); BILIRUBIN,TOTAL 0.4 MG/DL (0.1-1.0); BLOOD UREA NITROGEN 36 MG/DL (7-18); BUN/CREATININE RATIO 28.6 (10.0-20.0); CALCIUM 8.6 MG/DL (8.5-10.1); CHLORIDE 108 MMOL/L (99-107); CREATININE 1.26 MG/DL (0.60-1.10); GLUCOSE 160 MG/DL (70-104); MAGNESIUM 2.1 MG/DL (1.5-2.4); POTASSIUM 3.9 MMOL/L (3.5-5.1); PRO BRAIN NATRIURETIC PEPTIDE 6405 PG/ML (0-450); SODIUM 140 MMOL/L (135-145); TOTAL CARBON DIOXIDE 21.3 MMOL/L (24-32); TOTAL PROTEIN 6.9 G/DL (6.4-8.2); eCRCL 41 ML/MIN; eGFR 54 ML/MIN
[2024-07-25] MEDS: metoprolol tartrate 1mg/ml inj IV ONE (08:17)
[2024-07-26] VITALS (17 sets, daily range): BP systolic 149–199; BP diastolic 65–107; PULSE 81–104; RESP 14–26; TEMP 97.5–98.4; O2SAT 90–97
[2024-07-26] MEDS: hydrALAZINE 20mg/ml inj. IV ONE ×2 (03:25→03:28)
[2024-07-26] MEDS: metoprolol succinate 25mg (24-HOUR) SR. Tablet PO SCH (07:46)
[2024-07-26 07:54] LABS: BASOPHILS % (AUTO) 0.1 % (0-1); EOSINOPHILS % (AUTO) 0 % (0-6); HEMATOCRIT 38.2 % (42.0-52.0); HEMOGLOBIN 12.6 g/dl (14.0-17.9); LYMPHOCYTES # (AUTO) 0.2 X10'3 (1.1-4.8); LYMPHOCYTES % (AUTO) 1.4 % (21-51); MEAN CORPUSCULAR HEMOGLOBIN 31.2 PG (27.0-31.0); MEAN CORPUSCULAR VOLUME 94.4 FL (78-98); MONOCYTES % (AUTO) 6.9 % (2-12); NEUTROPHILS # (AUTO) 13.6 X10'3 (1.8-7.7); NEUTROPHILS % (AUTO) 91.6 % (42-75); PLATELET COUNT 221 X10'3 (140-440); RED BLOOD COUNT 4.04 X10'6 (4.70-6.10); RED CELL DISTRIBUTION WIDTH 13.8 % (11.5-14.5); WHITE BLOOD COUNT 14.8 X10'3 (4.5-11.0)
[2024-07-26 08:28] LABS: ALANINE AMINOTRANSFERASE 25 U/L (12-78); ALBUMIN 2.9 G/DL (3.4-5.0); ALBUMIN/GLOBULIN RATIO 0.8 (1.1-1.5); ALKALINE PHOSPHATASE 67 IU/L (46-116); ANION GAP 8 (8-16); ASPARTATE AMINO TRANSFERASE 12 U/L (10-37); BILIRUBIN,TOTAL 0.6 MG/DL (0.1-1.0); BLOOD UREA NITROGEN 36 MG/DL (7-18); BUN/CREATININE RATIO 27.7 (10.0-20.0); CALCIUM 8.4 MG/DL (8.5-10.1); CHLORIDE 108 MMOL/L (99-107); GLUCOSE 142 MG/DL (70-104); MAGNESIUM 2.1 MG/DL (1.5-2.4); POTASSIUM 3.7 MMOL/L (3.5-5.1); SODIUM 142 MMOL/L (135-145); TOTAL CARBON DIOXIDE 26.1 MMOL/L (24-32); TOTAL PROTEIN 6.6 G/DL (6.4-8.2); eCRCL 40 ML/MIN; eGFR 52 ML/MIN
[2024-07-26] MEDS ORDERED: morphine 2 MG/ML inj. syringe IV PRN ×2 (11:40)
[2024-07-26] MEDS ORDERED: LEVO-65 PO (11:45)
[2024-07-26] MEDS ORDERED: METO-395 PO (11:45)
[2024-07-26] MEDS ORDERED: APIX2.5T PO (11:45)
[2024-07-26] MEDS ORDERED: HYDR25TA5 PO (14:12)
[2024-07-26] MEDS ORDERED: AMLO5TAB16 PO (14:12)
[2024-07-26] MEDS: amLODIPine 5mg tablet PO ONE (14:19)
[2024-07-26] MEDS ORDERED: methylPREDNISolone sod succ/PF 40mg inj. IV SCH (20:00)
[2024-07-27 02:00] VITALS: BP 169/89; PULSE 95; RESP 20; TEMP 97.9; O2SAT 92
[2024-07-27 02:59] VITALS: PULSE 79; RESP 14; O2SAT 93
[2024-07-27 03:09] VITALS: PULSE 83; RESP 16
[2024-07-27 07:00] VITALS: BP 161/94; PULSE 98; RESP 16; TEMP 97.4; O2SAT 90
[2024-07-27 07:12] LABS: BASOPHILS % (AUTO) 0.1 % (0-1); EOSINOPHILS % (AUTO) 0 % (0-6); HEMOGLOBIN 13.3 g/dl (14.0-17.9); LYMPHOCYTES # (AUTO) 0.6 X10'3 (1.1-4.8); MEAN CORPUSCULAR HEMOGLOBIN 31.5 PG (27.0-31.0); MEAN CORPUSCULAR HGB CONC 33.2 g/dL (33.0-36.5); MEAN CORPUSCULAR VOLUME 94.8 FL (78-98); MEAN PLATELET VOLUME 9.6 FL (7.4-10.4); MONOCYTES # (AUTO) 1.4 X10'3 (0-0.9); MONOCYTES % (AUTO) 8.6 % (2-12); NEUTROPHILS # (AUTO) 13.9 X10'3 (1.8-7.7); NEUTROPHILS % (AUTO) 87.3 % (42-75); PLATELET COUNT 235 X10'3 (140-440); RED BLOOD COUNT 4.22 X10'6 (4.70-6.10); RED CELL DISTRIBUTION WIDTH 13.6 % (11.5-14.5); WHITE BLOOD COUNT 15.9 X10'3 (4.5-11.0)
[2024-07-27 07:46] LABS: ALANINE AMINOTRANSFERASE 58 U/L (12-78); ALBUMIN 2.8 G/DL (3.4-5.0); ALBUMIN/GLOBULIN RATIO 0.8 (1.1-1.5); ALKALINE PHOSPHATASE 65 IU/L (46-116); ANION GAP 5 (8-16); ASPARTATE AMINO TRANSFERASE 31 U/L (10-37); BILIRUBIN,TOTAL 0.9 MG/DL (0.1-1.0); BLOOD UREA NITROGEN 32 MG/DL (7-18); BUN/CREATININE RATIO 30.2 (10.0-20.0); CALCIUM 8.2 MG/DL (8.5-10.1); CHLORIDE 105 MMOL/L (99-107); CREATININE 1.06 MG/DL (0.60-1.10); GLUCOSE 99 MG/DL (70-104); POTASSIUM 3.3 MMOL/L (3.5-5.1); SODIUM 140 MMOL/L (135-145); TOTAL CARBON DIOXIDE 30.5 MMOL/L (24-32); TOTAL PROTEIN 6.4 G/DL (6.4-8.2); eCRCL 49 ML/MIN; eGFR 66 ML/MIN
[2024-07-27 08:00] VITALS: RESP 18; O2SAT 94
[2024-07-27] MEDS: furosemide 40mg/4ml inj IV SCH (08:00)
[2024-07-27 09:06] VITALS: BP_SYST 119; PULSE 146
[2024-07-27] MEDS: metoprolol tartrate 1mg/ml inj IV ONE (09:06)
[2024-07-27] MEDS ORDERED: magnesium sulf-water 2g/50mL 50 ML IV PRN (09:20)
[2024-07-27] MEDS ORDERED: potassium Cl 20 mEq SR tablet PO PRN (09:20)
[2024-07-27] MEDS ORDERED: magnesium Cl slow-release 64mg tablet PO PRN (09:20)
[2024-07-27] MEDS ORDERED: magnesium sulf-water 4G/100mL 100 ML IV PRN (09:20)
[2024-07-27] MEDS ORDERED: potassium Cl 40MEQ/1/2NS 520ml 520 ML IV PRN (09:20)
[2024-07-27] MEDS: diltiazem 30mg tablet PO SCH (10:17)
[2024-07-27] MEDS: potassium Cl 20 mEq SR tablet PO PRN (10:17)
[2024-07-27] MEDS ORDERED: lactose-reduced food (Ensure Enlive) - 237ml bottle PO SCH (13:00)
== END 2024-07-27 12:50 | disposition home health service (06) | DRG 871 ==
LOC: ER 11:41 → ED HOLD 21:14 → EDBEDREQ 23:49 → PCU 3S 07-23 00:29
PROVIDERS: ADMIT Internal Medicine Critical Care Medicine; ATTEND Family Medicine
PROC: 5A09357 Assistance with Respiratory Ventilation, Less than 24 Consecutive Hours, Continuous Positive Airway Pressure (ICD-10-PCS; principal; 2024-07-25)
PROC: 5A09357 Assistance with Respiratory Ventilation, Less than 24 Consecutive Hours, Continuous Positive Airway Pressure (ICD-10-PCS; 2024-07-26)
DX: A41.9 Sepsis, unspecified organism (principal); G93.41 Metabolic encephalopathy; J18.9 Pneumonia, unspecified organism; N17.0 Acute kidney failure with tubular necrosis; N39.0 Urinary tract infection, site not specified; J44.0 Chronic obstructive pulmonary disease with (acute) lower respiratory infection; J96.10 Chronic respiratory failure, unspecified whether with hypoxia or hypercapnia; Z66 Do not resuscitate; N40.1 Benign prostatic hyperplasia with lower urinary tract symptoms; R33.8 Other retention of urine; I10 Essential (primary) hypertension; I48.91 Unspecified atrial fibrillation; E86.0 Dehydration; G47.33 Obstructive sleep apnea (adult) (pediatric); Z79.01 Long term (current) use of anticoagulants; Z86.73 Personal history of transient ischemic attack (TIA), and cerebral infarction without residual deficits
CPT/HCPCS: 36415; 36600; 70450; 71045; 74176; 80053; 80061; 81001; 82570; 82803; 83036; 83605; 83735; 83880; 83935; 84145; 84300; 84484; 85007; 85018; 85025; 85610; 85651; 85730; 87040; 87081; 87088; 87207; 93005; 93306; 94640; 94660; 94760; 96365; 97161; 97530; 99285; A6590; G0378; J0360; J0456; J0696; J1644; J1940; J2919; J3490; J7030; J7040

== ENCOUNTER 2025-03-08 15:07 | Emergency (ER) | payer MEDICARE, OTHER ==
[~2025-03-08] VITALS: Ht 175.3 cm; Wt 86.0 kg
[~2025-03-08 15:07] MED LIST changes: +ALB0.5UD IH; +AMLO5TAB16 PO; +APIX2.5T PO; -CEPH500C2 PO; +HYDR25TA5 PO; +METO-395 PO; -VARD20TA39 PO; +VIT1CAPS9 PO
--- NOTE | 2025-03-08 15:48 | Physician Documentation ---
History of Present Illness ~ Chief Complaint: Dizziness Stated Complaint: DIZZY, FALL Time Seen by MD: 18:11 OK to notify your PCP?: Yes Primary Medical Doctor: Dr. Campbell Source: patient, family Mode of Arrival: POV Exam Limitations: no limitations HPI 89-year-old male presents with his after getting dizzy and having 1 episode of falling onto his right side about 8:30 a.m. He denies any injuries after his fall. He is not sure if there was a head strike and is also not sure if he lost consciousness. He does take Eliquis for AFib. reports that yesterday he had episode of dizziness upon standing too quickly. Using home oxygen. No other cardiac history. Denies any recent illnesses. Additional note by Jeet Meneses DO: I took over the care of this patient from previous physician. I reviewed any previous notes available, obtain my own history, review of systems and physical examination was performed by myself. This is a very pleasant 89-year-old gentleman with a known history of COPD on baseline 3 L, atrial fibrillation, on Eliquis, comes in for evaluation of a fall. He states that he was sitting in his chair, stood up, got dizzy which he describes it as a spinning sensation, and had fallen. This occurred around 8:30 a.m.. Denies any head strike. Denies loss of consciousness. He states that he had similar episode of dizziness yesterday after standing up too quickly. No chest pain or shortness a breath. Denies any nausea, vomiting, diarrhea, abdominal pain. 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 Medication Reconciliation Allergies: Coded Allergies: No Known Allergies (Unverified , 07/22/24) Scheduled Amlodipine Besylate (Amlodipine Besylate), 1 TAB PO DAILY Apixaban (Eliquis), 2.5 MG PO BID Aspirin (Ecotrin*), 1 TAB PO DAILY, (Reported) Beta-Carotene(A) W-C & E/Min (Ocuvite), 1 EACH PO BID, (Reported) Hydrochlorothiazide (Hydrochlorothiazide), 0.5 TAB PO DAILY Lactobacillus Casei/Folic Acid (Restora Rx Capsule), 1 CAP PO DAILY Lisinopril (Lisinopril), 1 TAB PO DAILY, (Reported) Metoprolol Succinate (Metoprolol Succinate), 25 MG PO DAILY Multivitamin (Multi Vitamin Daily), 1 TAB PO DAILY, (Reported) Vit A/Vit C/Vit E/Zinc/Copper (Preservision Areds Softgel), 1 CAP PO Q12H, (Reported) [tamsulosin capsule], 0.4 MG PO HS Scheduled PRN Albuterol Sulfate Nebs* (Proventil Nebs*), 2.5 MG IH Q6H PRN for SOB or wheezing, (Reported) Past Medical History Past Medical History: CVA/TIA/Stroke, Hypertension Past Surgical History: cholecystectomy, orthopedic surgeries, other Alcohol Use: Occasionally Drug Use: none Lives with: Spouse Lives In: Home Occupation: retired Review of Systems All Other Systems at this time: Reviewed and Negative ROS 10 point review of systems was performed and unless noted above in HPI is negative for acute process/complaint. Physical Exam Physical Exam General: Alert, no apparent distress. HEENT: PERRL, EOMI, no injection, moist mucous membranes. Neck: Full range of motion. Respiratory: Lungs clear, no respiratory distress. Chest: No accessory muscle use. Cardiovascular: Regular rate and rhythm, no murmurs. Extremities: Normal range of motion, no deformity. Neurologic: Oriented x4. Psychiatric: Normal mood and affect. Skin: Normal color, warm and dry. No edema, no ecchymosis. Progress Results/Orders Results/Orders Orders - JEET MENESES DO * Miscellaneous Nursing Orders (03/08/25 19:05) Completed Orders - JEET MENESES DO Troponin (Single) (03/08/25 18:31) PBNP (03/08/25 18:31) Vital Signs 03/08/25 03/08/25 03/08/25 03/08/25 15:40 15:58 16:51 19:04 Temp 98.5 98.5 Pulse 55 50 Resp 18 18 16 16 B/P (MAP) 111/75 117/53 (74) Pulse Ox 94 100 O2 Flow Rate 3.0 3.0 03/08/25 19:05 Temp 98.5 Pulse 80 Resp 16 B/P (MAP) 164/84 (110) Pulse Ox 100 O2 Flow Rate 3.0 Laboratory Tests Test 03/08/25 16:17 White Blood Count 6.3 Red Blood Count 3.85 L Hemoglobin 12.3 L Hematocrit 36.4 L Mean Corpuscular Volume 94.5 Mean Corpuscular Hemoglobin 31.9 H Mean Corpuscular Hemoglobin Concent 33.7 Red Cell Distribution Width 13.2 Platelet Count 188 Mean Platelet Volume 9.3 Neutrophils (%) (Auto) 70.1 Lymphocytes (%) (Auto) 16.5 L Monocytes (%) (Auto) 10.1 Eosinophils (%) (Auto) 2.8 Basophils (%) (Auto) 0.5 Neutrophils # (Auto) 4.4 Lymphocytes # (Auto) 1.0 L Monocytes # (Auto) 0.6 Eosinophils # (Auto) 0.2 Basophils # (Auto) 0.0 CBC Comment Sodium Level 143 Potassium Level 4.4 Chloride Level 107 Carbon Dioxide Level 29.3 Anion Gap 7 L Blood Urea Nitrogen 25 H Creatinine 1.22 H Estimated GFR/1.73 m2 56 BUN/Creatinine Ratio 20.5 H Glucose Level 96 Calcium Level 8.4 L Magnesium Level 2.2 Total Bilirubin 0.4 Aspartate Amino Transf (AST/SGOT) 19 Alanine Aminotransferase (ALT/SGPT) 17 Alkaline Phosphatase 87 Troponin I High Sensitivity 14 Pro-B-Type Natriuretic Peptide 660 H Total Protein 6.4 Albumin 3.5 Globulin 2.9 Albumin/Globulin Ratio 1.2 Chemistry Comments Medical Decision Making Findings Facility Status: [facility], [facility] process The plan was discussed with the patient, who demonstrates clear understanding of the plan and is in agreement with the plan unless otherwise noted in the chart. All questions have been answered, all concerns were addressed unless otherwise documented. I was available throughout their ED stay for frequent reassessment and questions. Differential Diagnoses (considered and possible or likely): [Orthostatic dizziness, less likely orthostatic near-syncope, vertigo, less likely vasovagal event, unlikely malignant arrhythmia, unlikely ACS, unlikely PE.] ??Differential Diagnoses (considered and unlikely, not requiring evaluation currently): [Aortic/great vessels dissection was considered but it is unlikely based on absence of ripping, tearing, migratory chest pain, absence of syncope or focal neurologic deficits, physical examination indicating equal and symmetric pulses.] MDM Data Please see HPI for the following: Independent Historians and external Records Review. Historian: [Patient] Independent Historians: ?[, record review] Medication Management: [Reviewed medication list] Social History and determinants: [Reviewed] Please see the body of the note for the following: Any independent interpretations of ECG, imaging studies. All vitals signs/haemodynamics, ordered tests were independently reviewed and interpreted by myself. Nursing triage complaint and vitals reviewed, additional nursing notes were reviewed as available and I agree unless otherwise noted or documented in contradiction in the chart Vital Signs: Independently reviewed Labs: Independently interpreted Imaging: Independently interpreted Old Medical Records: Independently reviewed, see HPI for relevant summary and information Pulse Oximetry: [97% on 3 L] interpreted as [baseline r] by me [Keno Writer/Runner: Irregularly irregular, bradycardic, currently sinus arrhythmia with PVCs and PACs. No AFib with a monitor. reviewed and interpreted by me] Additionally notably showing: [Hemodynamically stable. CBC normal metabolic panel notable for dehydration. CT shows no acute intracranial process.] Tests considered but not ordered include: [Echocardiogram can be done on an outpatient basis with Dr. Nolan] Social Determinants of Health Impact: Patient was evaluated in [facility], [facility] [place] healthcare due to below par ratio of patient to medical providers. [] Comorbid Conditions Impacting Present Evaluation and Care/Treatment: [Multiple, see list] Management Discussions with other Healthcare Providers: [] Treatment and Disposition Medication Management (Given or considered): []. See EMR for details Consideration for Hospitalization/Escalation/Deescalation of Care: Admission for observation has been considered, [however the patient is able to tolerate p.o., their symptoms are controlled, they are able to rely on oral medications, and their chief complaint/diagnosis can be managed on outpatient basis.] ?ED Course:?[Troponin is normal. BNP mildly elevated. Patient ambulated without difficulty.] Discussed possibility of admission for observation, however the gentleman specifically declines and does not want to be admitted. ?Shared decision making:?[Patient is hemodynamically stable for discharge home with follow with their primary care provider. [ ] Specific and cautious return precautions provided and discussed with full understanding. Any incidental findings were also discussed and follow up recommendations given. [] All questions answered. Patient/family were able to verbalize back return precautions. Patient/family agree to plan. Copies of imaging and laboratory studies were provided.] Code status:?FULL Please see the full Electronic Medical Record for full details of nursing documentation, medications list, other records of complete past medical history and conditions, vital signs, laboratory studies, and any radiologic study interpretations by radiologists. Portions of this note were completed using [employer] dictation software and as a result there may exist minor errors in spelling. I have reviewed elements of past family and social history and agree as included in note. Departure Disposition: HOME / SELF CARE / HOMELESS Impression: Primary Impression: Dizziness Condition: Improved Discharge Instructions: Dizziness Referrals: NO PRIMARY CARE PROVIDER (PCP) Education Educated: Patient, Family Educated regarding: diagnosis, treatment, prognosis, need for follow up Additional Comment Medical Screen Exam This patient recieved a medical screening examination. After reviewing the individual's medical complaints with presenting symptoms and performing an kimberly ropriate physical examination, it was determined that no emergency medical condition is present. This individual is also not a women having contractions. Signature Scribe Signature: No scribe Attestation: This note accurately reflects clinical decisions, work performed by myself, DO ONDINA Ennis [facility] D [facility] March 08, 2025 15:48 JEET MENESES DO March 08, 2025 18:50
--- NOTE | 2025-03-08 15:52 | ELECTROCARDIOGRAPH REPORT ---
[facility] Test Date: 2025-03-08 Test Time: 15:41:39 Pat Name: LYDIA MCCLURE Department: EMERGENCY ROOM Patient ID: [facility]-[id number] Room: Gender: M Manager Meat: TANESHA : 1935 Requested By: HUMAIRA [place] Order Number: [id number] Reading MD: Dr. Thad Berry Measurements Intervals [place] Rate: 56 P: 67 HI: 204 QRS: -67 QRSD: 157 T: 54 QT: 465 QTc: 449 Interpretive Statements Sinus bradycardia Atrial premature complex Sinus pause RBBB and LAFB Baseline wander in lead(s) III Electronically Signed On 03-08-2025 16:08:[address] Thad Berry Please click the below link to view image of tracing.
--- NOTE | 2025-03-08 16:32 | RADIOLOGY REPORT ---
EXAM: CT CT HEAD INDICATION: fall this morning, on eliquis, unk if LOC or headstrike TECHNIQUE: CT of the head without intravenous contrast. Radiation Dose Information: CT Dose: CTDI volume is 25 mGy. Dose-length product is 250 mGy*cm The dose indicators for CT are the volume Computed Tomography (CT) Dose Index (CTDIvol) and the Dose Length Product (DLP), and are measured in units of mGy and mGy-cm, respectively. These indicators are not patient dose, but values generated from the CT scanner acquisition factors. The report includes radiation exposure data for exposures received during this examination. COMPARISON: CT CT HEAD on DOS: 07/22/24, MRI HEAD on DOS: 12/25/21, CT STROKE ALERT on DOS: 12/25/21 FINDINGS: There is no evidence of acute intracranial hemorrhage, extra-axial collection, mass effect, midline s hift, herniation or hydrocephalus. Encephalomalacia right occipital lobe. The ventricles, sulci and cisterns are age appropriate. The easley-white differentiation is intact. Patchy periventricular and subcortical white matter hypoattenuation is nonspecific but may be related to small vessel ischemic disease. The visualized paranasal sinuses and mastoid air cells are clear. The surrounding soft tissues and osseous structures are unremarkable. IMPRESSION: No acute intracranial abnormality.
[2025-03-08 16:40] LABS: BASOPHILS % (AUTO) 0.5 % (0-1); EOSINOPHILS # (AUTO) 0.2 X10'3 (0-0.9); EOSINOPHILS % (AUTO) 2.8 % (0-6); HEMATOCRIT 36.4 % (42.0-52.0); HEMOGLOBIN 12.3 g/dl (14.0-17.9); LYMPHOCYTES % (AUTO) 16.5 % (21-51); MEAN CORPUSCULAR HEMOGLOBIN 31.9 PG (27.0-31.0); MEAN CORPUSCULAR HGB CONC 33.7 g/dL (33.0-36.5); MEAN CORPUSCULAR VOLUME 94.5 FL (78-98); MEAN PLATELET VOLUME 9.3 FL (7.4-10.4); MONOCYTES # (AUTO) 0.6 X10'3 (0-0.9); MONOCYTES % (AUTO) 10.1 % (2-12); NEUTROPHILS # (AUTO) 4.4 X10'3 (1.8-7.7); NEUTROPHILS % (AUTO) 70.1 % (42-75); PLATELET COUNT 188 X10'3 (140-440); RED BLOOD COUNT 3.85 X10'6 (4.70-6.10); RED CELL DISTRIBUTION WIDTH 13.2 % (11.5-14.5); WHITE BLOOD COUNT 6.3 X10'3 (4.5-11.0)
[2025-03-08 16:53] LABS: ALANINE AMINOTRANSFERASE 17 U/L (12-78); ALBUMIN 3.5 G/DL (3.4-5.0); ALBUMIN/GLOBULIN RATIO 1.2 (1.1-1.5); ALKALINE PHOSPHATASE 87 IU/L (46-116); ANION GAP 7 (8-16); ASPARTATE AMINO TRANSFERASE 19 U/L (10-37); BILIRUBIN,TOTAL 0.4 MG/DL (0.1-1.0); BLOOD UREA NITROGEN 25 MG/DL (7-18); BUN/CREATININE RATIO 20.5 (10.0-20.0); CALCIUM 8.4 MG/DL (8.5-10.1); CHLORIDE 107 MMOL/L (99-107); CREATININE 1.22 MG/DL (0.60-1.10); GLUCOSE 96 MG/DL (70-104); MAGNESIUM 2.2 MG/DL (1.5-2.4); POTASSIUM 4.4 MMOL/L (3.5-5.1); SODIUM 143 MMOL/L (135-145); TOTAL CARBON DIOXIDE 29.3 MMOL/L (24-32); TOTAL PROTEIN 6.4 G/DL (6.4-8.2); eCRCL 42 ML/MIN; eGFR 56 ML/MIN
[2025-03-08 18:57] LABS: PRO BRAIN NATRIURETIC PEPTIDE 660 PG/ML (0-450)
[2025-03-08 19:23] VITALS: BP 164/84; PULSE 82; RESP 18; TEMP 98.2; O2SAT 100
== END 2025-03-08 19:26 | disposition home or self-care (01) ==
LOC: ER 15:08
DX: R42 Dizziness and giddiness (principal); I10 Essential (primary) hypertension; I48.91 Unspecified atrial fibrillation; J44.9 Chronic obstructive pulmonary disease, unspecified; Z79.01 Long term (current) use of anticoagulants; Z86.73 Personal history of transient ischemic attack (TIA), and cerebral infarction without residual deficits; Z90.49 Acquired absence of other specified parts of digestive tract; Z79.899 Other long term (current) drug therapy; Z79.82 Long term (current) use of aspirin; Z72.89 Other problems related to lifestyle
CPT/HCPCS: 36415; 70450; 80053; 83735; 83880; 84484; 85025; 93005; 99284

== ENCOUNTER 2025-08-08 07:45 | Inpatient (IN) | payer MEDICARE, OTHER ==
[~2025-08-08] VITALS: Ht 175.3 cm; Wt 86.7 kg
--- NOTE | 2025-08-08 08:46 | Physician Documentation ---
History of Present Illness ~ Chief Complaint: Mechanical Fall Stated Complaint: FALL ON THINNERS HEAD STRIKE Time Seen by MD: 08:32 Primary Medical Doctor: Dr. Campbell HPI 89-year-old male presenting after a fall that occurred approximately 1 hour prior to arrival. Patient got up out of bed and fell hitting the front of his head on the nightstand. His who is with him states that she heard a thud and ran into the room and saw that the patient was on the ground with his head bleeding. Patient reports that he does not have any recollection of the events and is unsure if he lost consciousness. Currently he complains of pain in his neck as well as a very mild headache. He denies any chest pain, shortness of breath or any other associated symptoms. Tetanus within 5 Years?: No Medication Reconciliation Allergies: Coded Allergies: No Known Allergies (Unverified , 08/08/25) Scheduled Amlodipine Besylate (Amlodipine Besylate), 1 TAB PO DAILY Apixaban (Eliquis), 2.5 MG PO BID Aspirin (Ecotrin*), 1 TAB PO DAILY, (Reported) Beta-Carotene(A) W-C & E/Min (Ocuvite), 1 EACH PO BID, (Reported) Hydrochlorothiazide (Hydrochlorothiazide), 0.5 TAB PO DAILY Lactobacillus Casei/Folic Acid (Restora Rx Capsule), 1 CAP PO DAILY Lisinopril (Lisinopril), 1 TAB PO DAILY, (Reported) Metoprolol Succinate (Metoprolol Succinate), 25 MG PO DAILY Multivitamin (Multi Vitamin Daily), 1 TAB PO DAILY, (Reported) Vit A/Vit C/Vit E/Zinc/Copper (Preservision Areds Softgel), 1 CAP PO Q12H, (Reported) [tamsulosin capsule], 0.4 MG PO HS Scheduled PRN Albuterol Sulfate Nebs* (Proventil Nebs*), 2.5 MG IH Q6H PRN for SOB or wheezing, (Reported) Past Medical History Past Medical History: CVA/TIA/Stroke, Hypertension Past Surgical History: cholecystectomy, orthopedic surgeries, other Alcohol Use: Occasionally Drug Use: none Lives with: Spouse Lives In: Home Occupation: retired Review of Systems All Other Systems at this time: Reviewed and Negative Physical Exam Vital Signs: Temperature: 97.9, Source: Oral, Heart Rate: 57, Respiratory Rate: 16, BP: 170/62, Pulse Oximetry: 98, Weight: 86.700 Oxygen Flow Rate: 2.0 Physical Exam I have reviewed the triage vitals. CONST: Well developed and well nourished. In no acute distress. HENT: There is a 3 cm diagonal laceration over the right forehead EYES: Pupils are equal, round and reactive to light. Normal conjunctiva NECK: Limited range of motion secondary to pain. There is tenderness to palpation over the cervical midline. Exam limited secondary to pain. CARDIO: Normal rate and regular rhythm. No murmurs, rubs, or gallops. S1, S2. PULM/CHEST: No respiratory distress. Lungs clear to auscultation. No wheeze ABD: Soft and nontender. Nondistended. Bowel sounds normal. No guarding. : Exam deferred MSK: No edema. No deformity. NEURO: Alert and oriented to person, place and time. Moving all extremities SKIN: Warm and dry. PSYCH: Normal mood and affect. Good eye contact. Procedures Laceration Repair : Location: Right forehead Length (cm): 3 Anesthesia: Lidocaine w/ Epi Volume Anesthetic (mls): 8 Prep: betadine Irrigated w/ Saline (mls): 20 Debrided: minimal Undermining: none Margins: flaps aligned Foreign Body: not identified Repaired: skin Wound Repaired With: sutures Suture Size/Type: 5-0, ethilon Number of Superficial Sutures: 6 Dressing Applied: simple Tolerated Procedure Well?: yes, no complications Progress Results/Orders Results/Orders Orders - EAMON COATES MD Chest,Single View (08/08/25 08:41) Monitor (08/08/25 08:41) Saline Lock (08/08/25 08:41) Ct Head (08/08/25 09:46) Ct Cervical Spine (08/08/25 09:48) Page Hospitalist (08/08/25 11:39) Fill Out Med Reconciliation (08/08/25 11:39) Completed Orders - EAMON COATES MD Cbc/Diff (08/08/25 08:41) Chest,Single View (08/08/25 08:41) BMP (08/08/25 08:41) Hs Troponin I W Calculations (08/08/25 08:41) Hs Troponin I W Calculations (08/08/25 10:41) Hs Troponin I W Calculations (08/08/25 11:41) Ct Head (08/08/25 09:46) Ct Cervical Spine (08/08/25 09:48) Electrocardiogram (08/08/25 08:46) Lisinopril Tablet (Zestril Tablet) (08/08/25 09:40) Amlodipine Tablet (Norvasc Tablet) (08/08/25 09:40) Ua W/Microscopic, Cult If Ind (08/08/25 09:33) Lidocaine 1% W/Epi 1:100,000 (Xylocaine (08/08/25 10:10) Acetaminophen 325mg Tablet (Tylenol Tabl (08/08/25 10:10) Medications Received in ER Medications (Trade) Dose Ordered Sig/Mikaela Route PRN Reason Start Time Stop Time Status Last Admin Dose Admin (Zestril tablet) 20 mg ONCE ONCE PO 08/08/25 09:40 08/08/25 09:43 DC 08/08/25 10:04 20 MG (Norvasc tablet) 10 mg ONCE ONCE PO 08/08/25 09:40 08/08/25 09:43 DC 08/08/25 10:05 10 MG (Tylenol tablet) 975 mg ONCE ONCE PO 08/08/25 10:10 08/08/25 10:11 DC 08/08/25 10:53 975 MG Vital Signs 08/08/25 08/08/25 08/08/25 08/08/25 07:49 08:50 09:20 10:04 Temp 97.9 97.9 Pulse 57 71 70 Resp 16 19 B/P (MAP) 170/62 205/96 (132) Pulse Ox 98 97 O2 Flow Rate 2.0 3.0 08/08/25 08/08/25 10:05 10:55 Temp 97.9 Pulse 71 77 Resp 17 B/P (MAP) 176/90 (118) Pulse Ox 97 O2 Flow Rate 3.0 Laboratory Tests Test 08/08/25 09:18 08/08/25 09:33 08/08/25 10:58 08/08/25 11:50 White Blood Count 12.2 H Red Blood Count 4.58 L Hemoglobin 14.2 Hematocrit 43.5 Mean Corpuscular Volume 94.9 Mean Corpuscular Hemoglobin 31.0 Mean Corpuscular Hemoglobin Concent 32.7 L Red Cell Distribution Width 13.2 Platelet Count 200 Mean Platelet Volume 9.1 Neutrophils (%) (Auto) 87.1 H Lymphocytes (%) (Auto) 4.7 L Monocytes (%) (Auto) 6.9 Eosinophils (%) (Auto) 1.0 Basophils (%) (Auto) 0.3 Neutrophils # (Auto) 10.6 H Lymphocytes # (Auto) 0.6 L Monocytes # (Auto) 0.8 Eosinophils # (Auto) 0.1 Basophils # (Auto) 0.0 CBC Comment Sodium Level 141 Potassium Level 4.4 Chloride Level 106 Carbon Dioxide Level 30.1 Anion Gap 5 L Blood Urea Nitrogen 24 H Creatinine 1.34 H Estimated GFR/1.73 m2 50 BUN/Creatinine Ratio 17.9 Glucose Level 113 H Calcium Level 8.8 Troponin I High Sensitivity 15 16 18 Albumin 4.1 Chemistry Comments Urine Specimen Description Urinal Urine Color Yellow Urine Clarity Clear Urine pH 6.5 Urine Specific [place] 1.010 Urine Protein Negative Urine Glucose (UA) Negative Urine Ketones Negative Urine Occult Blood Trace-intact Urine Nitrite Negative Urine Bilirubin Negative Urine Urobilinogen 0.2 Urine Leukocyte Esterase Negative Urine RBC None seen Urine WBC None seen Urine Squamous Epithelial Cells None seen Urine Bacteria None seen Urine Culture Indicated Not ind Volume Urine Centrifuged 10 ml Urine Comment Troponin I High Sens Percent Delta 6 12 Troponin I Hi Sens Absolute Change 1 2 EKG/XRAY/CT/US/VASC/MRI EKG : Additional Comment EKG as interpreted by ED MD indicating sinus rhythm at a rate of 72 beats per minute, right bundle branch block, left anterior fascicular block, no ischemia, normal axis Chest X-Ray : Additional Comments CHEST RADIOGRAPH Indication: syncope Technique: Single frontal view of the chest was obtained COMPARISON: DI CHEST,SINGLE VIEW on DOS: 07/25/24, DI CHEST,SINGLE VIEW on DOS: 07/22/24, DI CHEST,SINGLE VIEW on DOS: 05/23/24, CHEST,SINGLE VIEW on DOS: 11/29/22, CHEST,SINGLE VIEW on DOS: 12/25/21 FINDINGS: Lines and Tubes: None Lungs: Congestion Pleura: No effusion. No pneumothorax. Cardiomediastinal contours: Cardiomegaly Bones: Unremarkable IMPRESSION: Increased interstital prominence. This may represent pulmonary vascular congestion and/or viral pneumonia. Clinical correlation advised. CT : Impression EXAM: CT CT HEAD INDICATION: fall w/ head injury TECHNIQUE: CT of the head without intravenous contrast. Radiation Dose : 1. Head: CT Dose: CTDI volume is 66.5 mGy. Dose-length product is 1287 mGy*cm The dose indicators for CT are the volume Computed Tomography (CT) Dose Index (CTDIvol) and the Dose Length Product (DLP), and are measured in units of mGy and mGy-cm, respectively. These indicators are not patient dose, but values ge nerated from the CT scanner acquisition factors. The report includes radiation exposure data for exposures received during this examination. COMPARISON: CT CT HEAD on DOS: 03/08/25, CT CT HEAD on DOS: 07/22/24, MRI HEAD on DOS: 12/25/21, CT STROKE ALERT on DOS: 12/25/21 FINDINGS: There is no evidence of acute intracranial hemorrhage, extra-axial collection, mass effect, midline shift, herniation or hydrocephalus. The ventricles, sulci and cisterns are age appropriate. Right occipital parietal encephalomalacia. The easley-white differentiation is intact. Patchy periventricular and subcortical white matter hypoattenuation is non specific but may be related to small vessel ischemic disease. The visualized paranasal sinuses and mastoid air cells are clear. The surrounding soft tissues and osseous structures are unremarkable. IMPRESSION: No acute intracranial abnormality. EXAM: CT CT CERVICAL SPINE HISTORY: fall w/ head injury COMPARISON: MRI of the cervical spine dated 12/25/2021. TECHNIQUE: Noncontrast axial CT images of the cervical spine were performed. Sagittal and coronal reformatted images were obtained. This CT exam was performed using one or more of the following dose reduction techniques: Automated exposure control, adjustment of the mA and/or kv according to patient size, or the use of iterative reconstruction techniques. Radiation Dose: CT Dose: CTDI volume is 23.9 mGy. Dose-length product is 602.77 mGy*cm FINDINGS: There is an axially-oriented fracture of uncertain timing extending through the C4-C5 disc and possibly also involving the superior endplate of C5 and extending through the thick calcification of the anterior longitudinal ligament (image 56, series 602). There is slight retrolisthesis C4 on C5 which appears new compared with the prior MRI. No other fractures are identified about the lumbar spine. There are postoperative changes of laminectomy C4-C7 without presence of metallic fixation hardware. There are thick bridging calcifications along the anterior margin of the cervical spine and upper thoracic spine. There is advanced degenerative disc disease and facet arthropathy with ucga-of-iwebzobl spinal canal stenosis at C3-C4 and T1-T2. There is significant neural foraminal stenosis at C3-C4 bilaterally, C4-C5 bilaterally, C5-C6 bilaterally, C6-C7 bilaterally, C7-T1 on the left. There is emphysema and scarring of the lung apices. IMPRESSION: 1. Axially-oriented fracture extending through the C4-C5 disc space, extending through the thick calcification of the anterior longitudinal ligament, and possibly also C5 superior endplate. This fracture may be acute or subacute, favor acute. This fracture is new compared with MRI dated 12/25/2021. Consider follow-up noncontrast MRI of the cervical spine for better characterization of the fracture line and better characterization of fracture timing. 2. Cervical and upper thoracic spondylosis with thick bridging calcifications and some degree of ankylosis. This appearance may be seen with DISH or ankylosing spondylitis. 3. Postoperative changes of laminectomy C4-C7 without presence of metallic fixation hardware. 4. Degenerative disc disease and facet arthropathy cause multilevel significant neural foraminal stenosis as detailed above. 5. Updv-td-fwwuweiy spinal canal stenosis C3-C4 and T1-T2. 6. Emphysema and scarring in the lung apices. Critical findings Critical Result: Cervical spine fracture. Medical Decision Making Additional information obtaine: N/A Findings na Differential Dx:Considerations: Include: Closed head injury, Fracture(s), Contusion(s), Hematoma(s), Laceration(s) Additional Comment This is a 89-year-old male presenting after a syncopal episode where he sustained a right forehead laceration as well as a cervical vertebrae C4 and C5 fracture. Fractures were seen on the imaging. We did consult with Dr. Som Bethea, a surgeon at [facility]. He reviewed the imaging and assessed the this is most likely nonoperative and the patient can be placed in a C-collar with pain control and have outpatient follow up in the neurosurgery cli aby. Patient's lab workup does indicate slight elevated WBC count otherwise is for the most part grossly unremarkable. I suspect the patient had a syncopal episode regardless and given his age and risk factors should be admitted for a syncope workup. His forehead laceration was repaired-please see procedure note. Patient admitted to hospitalist team. Departure Disposition: ADMITTED INPATIENT Admitted to Inpatient Unit: to hospitalist Admission Level of Care: Med/Surg with Tele Impression: Primary Impression: Syncope Additional Impressions: C4 cervical fracture C5 cervical fracture Closed head injury Laceration of head Referrals: NO PRIMARY CARE PROVIDER (PCP) Signature Scribe Signature: 1 Attestation: 1 EAMON COATES MD Aug 08, 2025 08:46
--- NOTE | 2025-08-08 09:12 | RADIOLOGY REPORT ---
CHEST RADIOGRAPH Indication: syncope Technique: Single frontal view of the chest was obtained COMPARISON: DI CHEST,SINGLE VIEW on DOS: 07/25/24, DI CHEST,SINGLE VIEW on DOS: 07/22/24, DI CHEST,SINGLE VIEW on DOS: 05/23/24, CHEST,SINGLE VIEW on DOS: 11/29/22, CHEST,SINGLE VIEW on DOS: 12/25/21 FINDINGS: Lines and Tubes: None Lungs: Congestion Pleura: No effusion. No pneumothorax. Cardiomediastinal contours: Cardiomegaly Bones: Unremarkable IMPRESSION: Increased interstital prominence. This may represent pulmonary vascular congestion and/or viral pneumonia. Clinical correlation advised.
[2025-08-08 09:31] LABS: MEAN PLATELET VOLUME 9.1 FL (7.4-10.4); RED CELL DISTRIBUTION WIDTH 13.2 % (11.5-14.5)
[2025-08-08 09:45] LABS: LEUKOCYTE ESTERASE ,URINE NEGATIVE (Neg); NITRITES, URINE NEGATIVE (Neg); OCCULT BLOOD,URINE TRACE-INTACT (Neg)
[2025-08-08 09:48] LABS: UA COLLECTION TYPE URINAL
[2025-08-08 09:56] LABS: SQUAMOUS EPITHELIAL CELL,UR NONE SEEN /LPF (FEW)
--- NOTE | 2025-08-08 10:00 | RADIOLOGY REPORT ---
EXAM: CT CT HEAD INDICATION: fall w/ head injury TECHNIQUE: CT of the head without intravenous contrast. Radiation Dose : 1. Head: CT Dose: CTDI volume is 66.5 mGy. Dose-length product is 1287 mGy*cm The dose indicators for CT are the volume Computed Tomography (CT) Dose Index (CTDIvol) and the Dose Length Product (DLP), and are measured in units of mGy and mGy-cm, respectively. These indicators are not patient dose, but values generated from the CT scanner acquisition factors. The report includes radiation exposure data for exposures received during this examination. COMPARISON: CT CT HEAD on DOS: 03/08/25, CT CT HEAD on DOS: 07/22/24, MRI HEAD on DOS: 12/25/21, CT STROKE ALERT on DOS: 12/25/21 FINDINGS: There is no evidence of acute intracranial hemorrhage, extra-axial collection, mass effect, midline shift, herniation or hydrocephalus. The ventricles, sulci and cisterns are age appropriate. Right occipital parietal encephalomalacia. The easley-white differentiation is intact. Patchy periventricular and subcortical white matter hypoattenuation is nonspecific but may be related to small vessel ischemic disease. The visualized paranasal sinuses and mastoid air cells are clear. The surrounding soft tissues and osseous structures are unremarkable. IMPRESSION: No acute intracranial abnormality. Radiation optimization: All CT scans at this facility use at least one of these dose optimization techniques: automated exposure control mA and/or kV adjustment per patient size (includes targeted exams where dose is matched to clinical indication) or iterative reconstruction.
[2025-08-08 10:05] LABS: CREATININE 1.34 MG/DL (0.60-1.10); TOTAL CARBON DIOXIDE 30.1 MMOL/L (24-32); eCRCL 38 ML/MIN; eGFR 50 ML/MIN
[2025-08-08] MEDS: LIDOcaine 1% W/epiNEPHrine 1:100,000 20ml vial SQ ONE (10:10)
--- NOTE | 2025-08-08 10:21 | RADIOLOGY REPORT ---
EXAM: CT CT CERVICAL SPINE HISTORY: fall w/ head injury COMPARISON: MRI of the cervical spine dated 12/25/2021. TECHNIQUE: Noncontrast axial CT images of the cervical spine were performed. Sagittal and coronal reformatted images were obtained. This CT exam was performed using one or more of the following dose reduction techniques: Automated exposure control, adjustment of the mA and/or kv according to patient size, or the use of iterative reconstruction techniques. Radiation Dose: CT Dose: CTDI volume is 23.9 mGy. Dose-length product is 602.77 mGy*cm FINDINGS: There is an axially-oriented fracture of uncertain timing extending through the C4-C5 disc and possibly also involving the superior endplate of C5 and extending through the thick calcification of the anterior longitudinal ligament (image 56, series 602). There is slight retrolisthesis C4 on C5 which appears new compared with the prior MRI. No other fractures are identified about the lumbar spine. There are postoperative changes of laminectomy C4-C7 without presence of metallic fixation hardware. There are thick bridging calcifications along the anterior margin of the cervical spine and upper thoracic spine. There is advanced degenerative disc disease and facet arthropathy with pxak-lq-ktjwehjk spinal canal stenosis at C3-C4 and T1-T2. There is significant neural foraminal stenosis at C3-C4 bilaterally, C4-C5 bilaterally, C5-C6 bilaterally, C6-C7 bilaterally, C7-T1 on the left. There is emphysema and scarring of the lung apices. IMPRESSION: 1. Axially-oriented fracture extending through the C4-C5 disc space, extending through the thick calcification of the anterior longitudinal ligament, and possibly also C5 superior endplate. This fracture may be acute or subacute, favor acute. This fracture is new compared with MRI dated 12/25/2021. Consider follow-up noncontrast MRI of the cervical spine for better characterization of the fracture line and better characterization of fracture timing. 2. Cervical and upper thoracic spondylosis with thick bridging calcifications and some degree of ankylosis. This appearance may be seen with DISH or ankylosing spondylitis. 3. Postoperative changes of laminectomy C4-C7 without presence of metallic fixation hardware. 4. Degenerative disc disease and facet arthropathy cause multilevel significant neural foraminal stenosis as detailed above. 5. Vrae-tw-ajnetjpt spinal canal stenosis C3-C4 and T1-T2. 6. Emphysema and scarring in the lung apices. Critical findings Critical Result: Cervical spine fracture. Findings discussed with Dr. Potter at 08/08/2025 12:11 PM central time, and acknowledged receipt and understanding of the findings.
--- NOTE | 2025-08-08 11:14 | ELECTROCARDIOGRAPH REPORT ---
[facility] Test Date: 2025-08-08 Test Time: 08:57:26 Pat Name: LYDIA MCCLURE Department: EMERGENCY ROOM Patient ID: [id number] Room: [place] [address] Gender: M [employer] Technician: PM : 1935 Requested By: EAMON COATES Order Number: [id number] Reading MD: Dr. Thad Berry Measurements Intervals Holiday Rate: 72 P: 62 MT: 210 QRS: -75 QRSD: 168 T: 78 QT: 464 QTc: 508 Interpretive Statements Sinus rhythm Probable left atrial enlargement RBBB and LAFB Left ventricular hypertrophy Electronically Signed On 08-12-2025 20:44:[address] Thad Berry Please click the below link to view image of tracing.
[2025-08-08] MEDS ORDERED: potassium Cl 40MEQ/1/2NS 520ml 520 ML IV PRN (14:30)
[2025-08-08] MEDS ORDERED: potassium Cl 20 mEq SR tablet PO PRN ×2 (14:30)
[2025-08-08] MEDS ORDERED: magnesium Cl slow-release 64mg tablet PO PRN (14:30)
[2025-08-08] MEDS ORDERED: HYDROmorphone/PF 0.2 MG/ML SYRINGE IV PRN (14:30)
[2025-08-08] MEDS ORDERED: magnesium sulf-water 2g/50mL 50 ML IV PRN (14:30)
[2025-08-08] MEDS ORDERED: HYDROmorphone inj. 0.5 MG/0.5 ML DISP.SYRIN IV PRN (14:30)
[2025-08-08] MEDS ORDERED: magnesium sulf-water 4G/100mL 100 ML IV PRN (14:30)
[2025-08-08] MEDS ORDERED: ondansetron/PF 4mg/2ml inj IV PRN (14:30)
[2025-08-08] MEDS ORDERED: mag hydrox/Alum hydrox/simeth 30ml oral suspension PO PRN (14:30)
--- NOTE | 2025-08-08 14:33 | HISTORY AND PHYSICAL-Residence ---
History & Physical Providers to CC Resident Creating Document: SCOTT GREENWOOD, SAÚL ~ History of Present Illness Primary Medical Doctor: Dr. Campbell Reason for Admit\Complaint: fall History of Present Illness This is an 89-year-old male with past medical history of AFib and stroke presented in ER after a fall from bed last night.He reports that he fell out of the bed while sleeping striking his head and experienced moderate amount of bleeding from the scalp at the time of injury, there was no loss of consciousness as per his .He reports that following the fall the he developed a severe posterior neck pain described as sharp, shooting rated 8/10 intensity and it was nonradiating. His also mentioned that he already has limited neck movement due to prior neck surgery since the fall he barely moves his neck because of pain. He denies numbness tingling or weakness in arms or legs as well as chest pain shortness of breath nausea, vomiting dizziness or lightheadedness. Patient also mentions that he has atrial fibrillation and takes Eliquis and a had a surgery some cardiac monitoring device was placed she dont remember exactly what it was , Box Liner is Dr. Nolan History was also taken by patien , because patient cervical collar was placed and had pain. Allergies: Coded Allergies: No Known Allergies (Unverified , 08/08/25) Home Medications Home Medications Active Amlodipine Besylate 5 Mg Tablet 1 Tab PO DAILY 30 Days Hydrochlorothiazide 25 Mg Tab 0.5 Tab PO DAILY 30 Days Metoprolol Succinate 25 Mg Tab.sr.24h 25 Mg PO DAILY 30 Days Eliquis (Apixaban) 2.5 Mg Tablet 2.5 Mg PO BID 30 Days [tamsulosin capsule] 0.4 MG Cap 0.4 Mg PO HS Restora Rx Capsule (Lactobacillus Casei/Folic Acid) 60 Mg (200 Billion Cell)- 1.25 Mg Capsule 1 Cap PO DAILY 30 Days Reported Proventil Nebs* (Albuterol) 2.5 Mg/0.5 Ml Vial.neb 2.5 Mg IH Q6H PRN Preservision Areds Softgel (Vit A/Vit C/Vit E/Zinc/Copper) 4,296-226 Capsule 1 Cap PO Q12H 30 Days Ocuvite (Beta-Carotene(A) W-C & E/Min) 1 Each Tablet 1 Each PO BID Ecotrin* (Aspirin) 81 Mg Tablet. 1 Tab PO DAILY 30 Days Multi Vitamin Daily (Multivitamin) 1 Each Tablet 1 Tab PO DAILY 30 Days Lisinopril 20 Mg Tablet 1 Tab PO DAILY Past Medical History Past Medical History Hypertension AFib Stroke Bilateral macular degeneration Past Surgical History Surgical History Comment Bilateral knee replacement Cataract Cholecystectomy Cervical spine Laminectomy. 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 Lives in home with . PCP is Dr. Manish Gonzalez Box Liner is Dr. Nolan Alcohol Use: Occasionally ROS ROS All reviewed and negative except pertinent positive findings mentioned in HPI Exam Vitals: Vital Signs Date Time Temp Pulse Resp B/P (MAP) Pulse Ox O2 Delivery O2 Flow Rate FiO2 08/08/25 13:10 97.9 73 18 153/76 (101) 97 3.0 General: General: awake, alert oriented to place, time, and person HEENT: No pallor present, no icterus, moist mucous membranes Lacerations in forehead.left eye erythmematous. Neck: No masses and tenderness Resp: Unlabored. Lungs clear to auscultation bilaterally. Chest: Normal expansion. dressing noted which clean and dry. Cardiovascular: Regular Rate and rhythm, normal S1 and S2 without murmur, rub or gallop Abdomen: Soft and non tender in epigastrium, no organomegaly, no guarding and rigidity, bowel sounds present Neuro: No focal weakness in the upper and lower limb muscles, power of the muscles 5/5 bilateral upper and lower extremities, normal reflexes bilaterally. Cranial nerves intact Extremities: No cyanosis,clubbing or edema Skin: Warm and Dry. Psych: Normal affect Diagnostic Data Last Recorded Lab Results: 08/08/2591708/08/25917 Advance Care Planning Advanced Care plannin - 30 Minutes (I spent 17 minutes in discussing various resuscitative measures with the patient he chose to be full code) Additional Plan This is a 89-year-old male with a history of AFib, stroke presented in ER after experiencing a fall. Mechanical Fall Cervical Spine Fracture Cervical Spine CT shows: Axially-oriented fracture extending through the C4-C5 disc space, extending through the thick calcification of the anterior longitudinal ligament, and possibly also C5 superior endplate. CT head: No acute intracranial abnormality. Forehead laceration repaired in ER ED physician consulted Dr. Som Bethea, a surgeon at [facility]. He reviewed the imaging and assessed the this is most likely nonoperative and the patient can be placed in a C-collar with pain control and have outpatient follow up in the neurosurgery clinic. On Cervical collar. No numbnes or weakness. Pain meds as needed. Possibly community-acquired pneumonia Chest x-ray: Increased interstital prominence. This may represent pulmonary vascular congestion and/or viral pneumonia. Sirs criteria not met WBC 12.2 Procal normal On ceftriaxone 1 g IV COPD not in acute excerabation On 3 L of oxygen baselie DuoNebs Q4 PRN Incentive spirometry Obstructive Sleep Apnea Use CPAP at home will continue CPAP Atrial fibrillation EKG shows sinus rhythm [id number] score: 3 Rate is controlled Eliquis 2.5 mg b.i.d. Hypertension Continue amlodipine 2.5 mg BID, 2 Tab PO daily Chronic kidney disease Stage 3a Creatinine 1.46 Follow up with CMP Benign Prostatic Hyperplasia Continue tamsulosin 0.4 mg daily Code status: Full Code DVT prophylaxis: Elliquis 5 mg BID GI prophylaxis: Pantoprazole 40 mg IV Disposition: Patient admitted here after a fall, possible discharge tomorrow. Scott Greenwood PGY 1 IM Patient is seen in ER bed 12 spoke to and daughter at the bedside they agree with the plan of care all questions answered to the best of my ability Date of Service: Aug 08, 2025 Billing Provider: FILIBERTO TODD MD,SCOTT, RES Aug 08, 2025 14:33 FILIBERTO TODD MD Aug 10, 2025 10:36
[2025-08-08 15:04] LABS: CHOL/HDL RATIO 4.0 (0.00-4.99); LDL CHOLESTEROL 105 MG/DL (50-100)
[2025-08-08 15:13] LABS: URINE AMPHETAMINE SCREEN NEGATIVE (Neg); URINE BARBITUATE SCREEN NEGATIVE (Neg); URINE BENZODIAZEPINES SCREEN NEGATIVE (Neg); URINE CANNABINOID SCREEN NEGATIVE (Neg); URINE COCAINE SCREEN NEGATIVE (Neg); URINE METHADONE SCREEN NEGATIVE (Neg); URINE OPIATE SCREEN NEGATIVE (Neg); URINE PHENCYCLIDINE SCREEN NEGATIVE (Neg)
[2025-08-08] MEDS ORDERED: AMLO2.5T2 PO (15:28)
[2025-08-08] MEDS ORDERED: APIX2.5T PO (15:28)
[2025-08-08] MEDS: HYDROcodone/acetaminophen 5mg/325mg tablet PO PRN (17:41)
[2025-08-08 17:52] VITALS: BP 155/64; PULSE 70; RESP 18; TEMP 97.6; O2SAT 98
[2025-08-08 18:00] VITALS: BP 155/64; PULSE 70; RESP 18; TEMP 97.6; O2SAT 98
[2025-08-08] MEDS ORDERED: FLEC50TA PO (18:29)
[2025-08-08] MEDS: K and/or MAG REPLACEMENT MC SCH (19:55)
[2025-08-08] MEDS: docusate sod 100mg capsule PO SCH (19:55)
[2025-08-08 20:00] VITALS: RESP 18; O2SAT 98
[2025-08-08 21:23] VITALS: PULSE 64; RESP 16; O2SAT 95
[2025-08-08 22:00] VITALS: BP 138/62; PULSE 65; RESP 15; TEMP 98.4; O2SAT 96
[2025-08-09] VITALS (9 sets, daily range): BP systolic 111–157; BP diastolic 55–70; PULSE 63–89; RESP 13–18; TEMP 97.3–98.3; O2SAT 92–96
[2025-08-09 06:20] LABS: MEAN PLATELET VOLUME 9.2 FL (7.4-10.4); RED CELL DISTRIBUTION WIDTH 13.3 % (11.5-14.5)
[2025-08-09 06:33] LABS: APTT 35 SECONDS (22-32); INR 1.1 INR
[2025-08-09 06:36] LABS: CREATININE 1.18 MG/DL (0.60-1.10); PHOSPHORUS 3.5 MG/DL (2.3-4.5); TOTAL CARBON DIOXIDE 32.6 MMOL/L (24-32); eCRCL 43 ML/MIN; eGFR 58 ML/MIN
[2025-08-09] MEDS: CefTRIAXone/D5W-Rocephin 1gm 50 ML IV SCH (10:39)
--- NOTE | 2025-08-09 15:05 | PROGRESS NOTE- Residence ---
Progress Note - Resident Providers to CC Resident Creating Document: JOSE GREENWOOD RES ~ Antibiotic Timeout Antibiotic Ordered?: Yes Subjective Patient was seen and examined on bedside, reports pain over neck area , no nausea or vomitting. His told that he uses flecanide for Atrial fibrillation. Objective Vital Signs Date Time Temp Pulse Resp B/P (MAP) Pulse Ox O2 Delivery O2 Flow Rate FiO2 08/09/25 11:00 97.3 89 16 131/62 (85) 95 Nasal Cannula 3.0 08/09/25 10:51 32 Result Diagram: 08/09/25 0552 08/09/25 0552 General: awake, alert oriented to place, time, and person HEENT: No pallor present, no icterus, moist mucous membranes Lacerations in forehead.left eye erythmematous. Neck: No masses and tenderness Resp: Unlabored. Lungs clear to auscultation bilaterally. Chest: Normal expansion. dressing noted which clean and dry. Cardiovascular: Regular Rate and rhythm, normal S1 and S2 without murmur, rub or gallop Abdomen: Soft and non tender in epigastrium, no organomegaly, no guarding and rigidity, bowel sounds present Neuro: No focal weakness in the upper and lower limb muscles, power of the muscles 5/5 bilateral upper and lower extremities, normal reflexes bilaterally. Cranial nerves intact Extremities: No cyanosis,clubbing or edema Skin: Warm and Dry. Psych: Normal affect Coagulation Studies Laboratory Tests Test 08/09/25 05:52 Prothrombin Time 10.9 SECONDS (9.0-12.0) INR International Normalized Ratio 1.1 INR Activated Partial Thromboplast Time 35 SECONDS (22-32) H Coagulation Comments Advance Care Planning Advanced Care plannin - 30 Minutes Plan Plan Mechanical Fall Cervical Spine Fracture Cervical Spine CT shows: Axially-oriented fracture extending through the C4-C5 disc space, extending through the thick calcification of the anterior longitudinal ligament, and possibly also C5 superior endplate. CT head: No acute intracranial abnormality. Forehead laceration repaired in ER ED physician consulted Dr. Som Bethea, a surgeon at [facility]. He reviewed the imaging and assessed the this is most likely nonoperative and the patient can be placed in a C-collar with pain control and have outpatient follow up in the neurosurgery clinic. On Cervical collar. No numbnes or weakness. Pain meds as needed. Syncope Workup Follow up with MRI head and carotid ultrasound Orthostatics Head CT: No acute intracranial abnormality. Possibly community-acquired pneumonia Chest x-ray: Increased interstital prominence. This may represent pulmonary vascular congestion and/or viral pneumonia. Sirs criteria not met WBC 12.2 Procal normal On ceftriaxone 1 g IV COPD not in acute excerabation On 3 L of oxygen baselie DuoNebs Q4 PRN Incentive spirometry Obstructive Sleep Apnea Uses CPAP at home will continue CPAP Atrial fibrillation EKG shows sinus rhythm [id number] score: 3 Rate is controlled Flecainide 50 mg b.i.d Eliquis 2.5 mg b.i.d. loop electrode placed. Hypertension Continue amlodipine 2.5 mg BID, 2 Tab PO daily Chronic kidney disease Stage 3a Creatinine 1.46 Follow up with CMP Benign Prostatic Hyperplasia Continue tamsulosin 0.4 mg daily Code status: Full Code DVT prophylaxis: Elliquis 5 mg BID GI prophylaxis: Pantoprazole 40 mg IV Disposition: Patient admitted here after a fall, possible discharge tomorrow, syncope workup, MRI and Carotid U/S awaiting, possible discharge tomorrow. Date of Service: Aug 09, 2025 Billing Provider: FILIBERTO TODD MD Common Visit Codes: [id number] INP/OBS CARE(HIGH) JOSE GREENWOOD, RES Aug 09, 2025 15:05 FILIBERTO TODD MD Aug 10, 2025 10:35
--- NOTE | 2025-08-09 17:21 | VASCULAR REPORT ---
ULTRASOUND CAROTID DUPLEX BILATERAL REASON FOR EXAM: Syncope COMPARISON: None TECHNIQUE: Using real-time freeze-frame technique with a high-frequency small parts transducer, multiple longitudinal and transverse sections were obtained. Simultaneous color flow Doppler imaging was performed. FINDINGS: Yzji-[id number] calcified and noncalcified plaques are present in both carotid bulbs and internal carotid arteries. Waveforms are normal. Flow is laminar throughout. Peak systolic velocities as well as ICA/CCA ratios are normal. Flow through the vertebral and external carotid arteries is antegrade bilaterally. PEAK SYSTOLIC VELOCITIES (cm/sec): RIGHT: CCA 90 Proximal ICA 151 Mid ICA 131 Distal ICA 67 ECA 148 ICA/CCA ratio 1.8 LEFT: CCA 90 Proximal ICA 75 Mid ICA 107 Distal ICA 59 ECA 127 ICA/CCA ratio 1.2 IMPRESSION: Atherosclerotic vascular disease with no hemodynamically significant stenosis. Any narrowing is less than 50%. Measurement of carotid stenosis is based on velocity parameters that correlate the residual internal carotid diameter with that of the more distal vessel in accordance with the [place] Symptomatic Carotid Endarterectomy Trial (NASCET).
[2025-08-10] VITALS (12 sets, daily range): BP systolic 107–157; BP diastolic 51–65; PULSE 64–95; RESP 13–22; TEMP 97.5–98.5; O2SAT 92–97
[2025-08-10 06:35] LABS: MEAN PLATELET VOLUME 9.5 FL (7.4-10.4); RED CELL DISTRIBUTION WIDTH 13.0 % (11.5-14.5)
[2025-08-10 06:48] LABS: APTT 35 SECONDS (22-32); INR 1.1 INR
[2025-08-10 07:12] LABS: CREATININE 1.30 MG/DL (0.60-1.10); PHOSPHORUS 3.4 MG/DL (2.3-4.5); TOTAL CARBON DIOXIDE 32.5 MMOL/L (24-32); eCRCL 39 ML/MIN; eGFR 52 ML/MIN
[2025-08-10] MEDS: HYDROcodone/acetaminophen 10/325mg tab PO PRN (07:43)
[2025-08-10] MEDS: multivitamins, therapeutics tablet PO SCH (07:44)
--- NOTE | 2025-08-10 13:56 | PROGRESS NOTE- Residence ---
Progress Note - Resident Providers to CC Resident Creating Document: JOSE GREENWOOD RES ~ Antibiotic Timeout Antibiotic Ordered?: No Subjective Patient was seen and examined on bedside, Patient daughter said, which did not can not take care of her father and was requesting for rehab Daughter also said it would be difficult for for my stepmom to take care of father. Objective Vital Signs Date Time Temp Pulse Resp B/P (MAP) Pulse Ox O2 Delivery O2 Flow Rate FiO2 08/10/25 11:00 97.5 82 14 107/52 (70) 94 Nasal Cannula 3.0 08/10/25 08:31 32 Result Diagram: 08/10/25 0549 08/10/25 0549 General: awake, alert oriented to place, time, and person HEENT: No pallor present, no icterus, moist mucous membranes Lacerations in forehead.left eye erythmematous. Neck: No masses and tenderness Resp: Unlabored. Lungs clear to auscultation bilaterally. Chest: Normal expansion. dressing noted which clean and dry. Cardiovascular: Regular Rate and rhythm, normal S1 and S2 without murmur, rub or gallop Abdomen: Soft and non tender in epigastrium, no organomegaly, no guarding and rigidity, bowel sounds present Neuro: No focal weakness in the upper and lower limb muscles, power of the muscles 5/5 bilateral upper and lower extremities, normal reflexes bilaterally. Cranial nerves intact Extremities: No cyanosis,clubbing or edema Skin: Warm and Dry. Psych: Normal affect Coagulation Studies Laboratory Tests Test 08/10/25 05:49 Prothrombin Time 10.8 SECONDS (9.0-12.0) INR International Normalized Ratio 1.1 INR Activated Partial Thromboplast Time 35 SECONDS (22-32) H Coagulation Comments Advance Care Planning Advanced Care plannin - 30 Minutes Plan Plan Mechanical Fall Cervical Spine Fracture Cervical Spine CT shows: Axially-oriented fracture extending through the C4-C5 disc space, extending through the thick calcification of the anterior longitudinal ligament, and possibly also C5 superior endplate. CT head: No acute intracranial abnormality. Forehead laceration repaired in ER ED physician consulted Dr. Som Bethea, a surgeon at [facility]. He reviewed the imaging and assessed the this is most likely nonoperative and the patient can be placed in a C-collar with pain control and have outpatient follow up in the neurosurgery clinic. On Cervical collar. No numbnes or weakness. Pain meds as needed. Syncope Workup Follow up with MRI head and carotid ultrasound Orthostatics Head CT: No acute intracranial abnormality. 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 Any narrowing is less than 50%. MRI head could not be performed because patient was not able to lie flat even with pain meds because of pain in neck as he had cervical fracture. Possibly community-acquired pneumonia Chest x-ray: Increased interstital prominence. This may represent pulmonary vascular congestion and/or viral pneumonia. Sirs criteria not met WBC 12.2 Procal normal On ceftriaxone 1 g IV 08/10/25 Leukocytes normal today. COPD not in acute excerabation On 3 L of oxygen baselie DuoNebs Q4 PRN Incentive spirometry Obstructive Sleep Apnea Uses CPAP at home will continue CPAP Atrial fibrillation EKG shows sinus rhythm [id number] score: 3 Rate is controlled Flecainide 50 mg b.i.d Eliquis 2.5 mg b.i.d. loop electrode placed. Hypertension Continue amlodipine 2.5 mg BID, 2 Tab PO daily Chronic kidney disease Stage 3a Creatinine 1.46 Follow up with CMP 08/10/2025 Creatinine 1.30 Follow up CMP Benign Prostatic Hyperplasia Continue tamsulosin 0.4 mg daily Code status: Full Code DVT prophylaxis: Elliquis 5 mg BID GI prophylaxis: Pantoprazole 40 mg IV Disposition: Patient admitted here after a fall, cervical spine shows cervical fracture, MRI could not be performed because he is not able to tolerate MRI due to pain, PTS to work with patient possible discharge tomorrow to Rehab, as patient daughter states, her cant take care of her, as it would be difficulty to care at home. Date of Service: Aug 10, 2025 Billing Provider: FILIBERTO TODD MD Common Visit Codes: [id number] INP/OBS CARE(HIGH) JOSE GREENWOOD, RES Aug 10, 2025 13:56 FILIBERTO TODD MD Aug 11, 2025 08:39
[2025-08-11] VITALS (10 sets, daily range): BP systolic 120–133; BP diastolic 56–73; PULSE 72–91; RESP 13–22; TEMP 97.2–98.5; O2SAT 9–96
[2025-08-11 06:15] LABS: MEAN PLATELET VOLUME 9.7 FL (7.4-10.4); RED CELL DISTRIBUTION WIDTH 12.7 % (11.5-14.5)
[2025-08-11 06:27] LABS: APTT 34 SECONDS (22-32); INR 1.0 INR
[2025-08-11 06:46] LABS: CREATININE 1.33 MG/DL (0.60-1.10); PHOSPHORUS 3.8 MG/DL (2.3-4.5); TOTAL CARBON DIOXIDE 30.8 MMOL/L (24-32); eCRCL 38 ML/MIN; eGFR 51 ML/MIN
[2025-08-11] MEDS: morphine ER 15mg tablet PO SCH ×2 (12:18→20:00)
--- NOTE | 2025-08-11 17:03 | PROGRESS NOTE- Residence ---
Progress Note - Resident Providers to CC Resident Creating Document: WENDY JOAOBRENNAN Newton, RES ~ Antibiotic Timeout Antibiotic Ordered?: Yes Subjective The patient has been evaluated at the bedside. Still reports some pain in the level of the neck 5/10 in intensity. Denies any acute changes of bowel or urinary symptoms. Objective Vital Signs Date Time Temp Pulse Resp B/P (MAP) Pulse Ox O2 Delivery O2 Flow Rate FiO2 08/11/25 15:00 97.2 75 14 121/58 (79) 94 Nasal Cannula 3.0 08/11/25 13:54 32 Physical exam: General: Awake, alert, oriented. No acute distress. Well-developed, hydrated and well-built nourished. No anemia, Jaundice or clubbing. HEENT: Conjunctive are pink, sclerae clear, no icterus, pupil is equal in both sides, reactive to light, no ear discharge, no pharyngeal erythema or an edema. Presence of lacerations in the level of the forehead with six sutures, no signs of infection or inflammation. Neck: Supple, no adenopathy, thyromegaly. Trachea is midline. No JVD. Presence of C collar. Chest: Respiratory: Vesicular breath sounds. No ronchi, crepitus or wheezing. Resonance is normal upon percussion of all lung cuevas. Cardiovascular: S1-S2 regular sinus rhythm and, regular rate, no gallops, no rubs, no murmurs Abdomen: No visible distention, Bowel sounds present on auscultation, on palpation: soft, nontender, no guarding, no rigidity. Extremities: No obvious deformities, no pitting edema bilaterally, capillary refill intact, peripheral pulsations are intact on both sides Neurologic: Mental status: alert and conscious, oriented to place, person and time, preserved memory, normal speech. Cranial nerves I-XII: Normal. Motor system: Preserved power, coordination, no evidenced involuntary movements, strength 5/5 in four extremities. Sensory system: Preserved temperature, pain and vibration sensation. Skin: Warm and dry. Result Diagram: 08/11/2553908/11/25539 Physical exam: General: Awake, alert, oriented. No acute distress.No anemia, Jaundice or clubbing. HEENT: Conjunctive are pink, sclerae clear, no icterus, pupil is equal in both sides, reactive to light, no ear discharge, no pharyngeal erythema or an edema. Presence of lacerations in the level of the forehead with six sutures, no signs of infection or inflammation. Neck: Supple, no adenopathy, thyromegaly. Trachea is midline. No JVD. Presence of C collar. Chest: Respiratory: Vesicular breath sounds. No ronchi, crepitus or wheezing. Resonance is normal upon percussion of all lung cuevas. Cardiovascular: S1-S2 regular sinus rhythm and, regular rate, no gallops, no rubs, no murmurs Abdomen: No visible distention, Bowel sounds present on auscultation, on palpation: soft, nontender, no guarding, no rigidity. Extremities: No obvious deformities, no pitting edema bilaterally, capillary refill intact, peripheral pulsations are intact on both sides Neurologic: Mental status: alert and conscious, oriented to place, person and time, preserved memory, normal speech. Cranial nerves I-XII: Normal. Motor system: Preserved power, coordination, no evidenced involuntary movements, strength 5/5 in four extremities. Sensory system: Preserved temperature, pain and vibration sensation. Skin: Warm and dry. Coagulation Studies Laboratory Tests Test 08/11/25 05:40 Prothrombin Time 10.7 SECONDS (9.0-12.0) INR International Normalized Ratio 1.0 INR Activated Partial Thromboplast Time 34 SECONDS (22-32) H Coagulation Comments Assessment Assessment 89-year-old male patient presented to the hospital after a mechanical fall. Plan Plan Mechanical Fall Cervical Spine Fracture Cervical Spine CT shows: Axially-oriented fracture extending through the C4-C5 disc space, extending through the thick calcification of the anterior longitudinal ligament, and possibly also C5 superior endplate. CT head: No acute intracranial abnormality. Forehead laceration repaired in ER ED physician consulted Dr. Som Bethea, a surgeon at [facility]. He reviewed the imaging and assessed the this is most likely nonoperative and the patient can be placed in a C-collar with pain control and have outpatient follow up in the neurosurgery clinic. On Cervical collar. No numbnes or weakness. Pain meds as needed. 08/11/2025: Dr. Fernandez was consulted today reassess imaging of the patient who mentioned that the patient she will follow-up as an outpatient, office phone number given by Dr. Fernandez: [phone]. Plan: The patient will be discharged to rehab service tomorrow. Syncope: Orthostatic hypotension-negative: Head CT: No acute intracranial abnormality. 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 Any narrowing is less than 50%. MRI head could not be performed because patient was not able to lie flat even with pain meds because of pain in neck as he had cervical fracture. Continue to monitor. Possibly community-acquired pneumonia Chest x-ray: Increased interstital prominence. This may represent pulmonary vascular congestion and/or viral pneumonia. Sirs criteria not met WBC 12.2 Procal normal On ceftriaxone 1 g IV to be completed on 08/13/2025 COPD not in acute excerabation On 3 L of oxygen baselie DuoNebs Q4 PRN Incentive spirometry Obstructive Sleep Apnea Uses CPAP at home will continue CPAP Atrial fibrillation-Rate is controlled [id number] score: 3 EKG shows sinus rhythm Flecainide 50 mg b.i.d Eliquis 2.5 mg b.i.d. Left Eye Conjuctivitis Started Ciprofloxacin drops Q6h Hypertension Continue amlodipine 2.5 mg BID, 2 Tab PO daily Chronic kidney disease Stage 3a Baseline 1.22 Continue to monitor CMP Benign Prostatic Hyperplasia Continue tamsulosin 0.4 mg daily Code status: Full code DVT prophylaxis: Eliquis Analgesia/sedation: [place]/Contin Line/tube: PIV GI prophylaxis: Protonix Nutrition: Heart healthy diet PT: Yes Prognosis: Guarded Disposition: Continue medical management. Neurosurgeon Dr. Fernandez consulted, recommended follow-up as an outpatient, [facility] will take patient on . Scott Kurtz PGY 1 IM Date of Service: Aug 11, 2025 Billing Provider: FILIBERTO TODD MD Common Visit Codes: [id number] INP/OBS CARE(HIGH) BRENNAN العراقي, RES Aug 11, 2025 17:03 SCOTT KURTZ, RES Aug 12, 2025 18:07 FILIBERTO TODD MD Aug 15, 2025 16:17
[2025-08-12] VITALS (9 sets, daily range): BP systolic 108–145; BP diastolic 61–71; PULSE 77–91; RESP 10–22; TEMP 97–98.3; O2SAT 93–96
[2025-08-12 07:07] LABS: INR 1.1 INR
[2025-08-12 07:09] LABS: MEAN PLATELET VOLUME 9.4 FL (7.4-10.4); RED CELL DISTRIBUTION WIDTH 12.8 % (11.5-14.5)
[2025-08-12 07:18] LABS: CREATININE 1.32 MG/DL (0.60-1.10); PHOSPHORUS 4.1 MG/DL (2.3-4.5); TOTAL CARBON DIOXIDE 33.4 MMOL/L (24-32); eCRCL 39 ML/MIN; eGFR 51 ML/MIN
[2025-08-12] MEDS: pantoprazole 40mg Tablet.DR PO SCH (08:38)
[2025-08-12] MEDS: ciprofloxacin 0.3% 2.5ml ophthalmic solution LEFTEYE SCH (15:26)
--- NOTE | 2025-08-12 18:11 | PROGRESS NOTE- Residence ---
Progress Note - Resident Providers to CC Resident Creating Document: JOSE KURTZ RES ~ Antibiotic Timeout Antibiotic Ordered?: Yes Subjective Patient was seen and examined on bedside, reports he is feeling better ,denies pain or over neck area. Objective Vital Signs Date Time Temp Pulse Resp B/P (MAP) Pulse Ox O2 Delivery O2 Flow Rate FiO2 08/12/25 15:31 19 08/12/25 15:00 98.3 77 145/62 (89) 94 Nasal Cannula 3.0 08/12/25 12:03 32 Result Diagram: 08/12/2562508/12/25625 General: awake, alert oriented to place, time, and person HEENT: No pallor present, no icterus, moist mucous membranes Lacerations in forehead.left eye erythmematous. Neck: No masses and tenderness Resp: Unlabored. Lungs clear to auscultation bilaterally. Chest: Normal expansion. dressing noted which clean and dry. Cardiovascular: Regular Rate and rhythm, normal S1 and S2 without murmur, rub or gallop Abdomen: Soft and non tender in epigastrium, no organomegaly, no guarding and rigidity, bowel sounds present Neuro: No focal weakness in the upper and lower limb muscles, power of the muscles 5/5 bilateral upper and lower extremities, normal reflexes bilaterally. Cranial nerves intact Extremities: No cyanosis,clubbing or edema Skin: Warm and Dry. Psych: Normal affect Coagulation Studies Laboratory Tests Test 08/11/25 05:40 08/12/25 06:26 Activated Partial Thromboplast Time 34 SECONDS (22-32) H Prothrombin Time 10.9 SECONDS (9.0-12.0) INR International Normalized Ratio 1.1 INR Coagulation Comments Advance Care Planning Advanced Care plannin - 30 Minutes Assessment Assessment 89-year-old male patient presented to the hospital after a mechanical fall. Plan Plan Mechanical Fall Cervical Spine Fracture Cervical Spine CT shows: Axially-oriented fracture extending through the C4-C5 disc space, extending through the thick calcification of the anterior longitudinal ligament, and possibly also C5 superior endplate. CT head: No acute intracranial abnormality. Forehead laceration repaired in ER ED physician consulted Dr. Som Bethea, a surgeon at [facility]. He reviewed the imaging and assessed the this is most likely nonoperative and the patient can be placed in a C-collar with pain control and have outpatient follow up in the neurosurgery clinic. On Cervical collar. No numbnes or weakness. Pain meds as needed. 08/11/2025: Dr. Fernandez was consulted today reassess imaging of the patient who mentioned that the patient she will follow-up as an outpatient, office phone number given by Dr. Fernandez: [phone]. Plan: The patient will be discharged to rehab service tomorrow. Syncope: Orthostatic hypotension-negative: Head CT: No acute intracranial abnormality. 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 Any narrowing is less than 50%. MRI head could not be performed because patient was not able to lie flat even with pain meds because of pain in neck as he had cervical fracture. Continue to monitor. Possibly community-acquired pneumonia Chest x-ray: Increased interstital prominence. This may represent pulmonary vascular congestion and/or viral pneumonia. Sirs criteria not met WBC 12.2 Procal normal On ceftriaxone 1 g IV to be completed on 08/13/2025 COPD not in acute excerabation On 3 L of oxygen baselie DuoNebs Q4 PRN Incentive spirometry Obstructive Sleep Apnea Uses CPAP at home will continue CPAP Atrial fibrillation-Rate is controlled [id number] score: 3 EKG shows sinus rhythm Flecainide 50 mg b.i.d Eliquis 2.5 mg b.i.d. Left Eye Conjuctivitis In view of this started ceftriaxone drops Q6h Hypertension Continue amlodipine 2.5 mg BID, 2 Tab PO daily Chronic kidney disease Stage 3a Creatinine 1.46 08/11/2025: Current creatinine levels at the baseline. Continue to monitor CMP. Benign Prostatic Hyperplasia Continue tamsulosin 0.4 mg daily Code status: Full code DVT prophylaxis: Eliquis Analgesia/sedation: [place]/Contin Line/tube: PIV GI prophylaxis: Protonix Nutrition: Heart healthy diet PT: Yes Prognosis: Guarded Disposition: Continue medical management. Neurosurgeon Dr. Fernandez consulted, recommended follow-up as an outpatient.,RPA will take Patient on . Jose Kurtz PGY 1 IM Date of Service: Aug 12, 2025 Billing Provider: FILIBERTO TODD MD Common Visit Codes: [id number] INP/OBS CARE(HIGH) JOSE KURTZ, RES Aug 12, 2025 18:11 FILIBERTO TODD MD Aug 15, 2025 16:16
[2025-08-13] VITALS (8 sets, daily range): BP systolic 113–152; BP diastolic 62–73; PULSE 69–98; RESP 13–24; TEMP 97.1–98.5; O2SAT 93–97
[2025-08-13 05:49] LABS: MEAN PLATELET VOLUME 9.6 FL (7.4-10.4); RED CELL DISTRIBUTION WIDTH 12.7 % (11.5-14.5)
[2025-08-13 05:52] LABS: INR 1.1 INR
[2025-08-13 06:01] LABS: CREATININE 1.31 MG/DL (0.60-1.10); PHOSPHORUS 4.2 MG/DL (2.3-4.5); TOTAL CARBON DIOXIDE 30.6 MMOL/L (24-32); eCRCL 39 ML/MIN; eGFR 52 ML/MIN
[2025-08-13] MEDS: CefTRIAXone/D5W-Rocephin 1gm 50 ML IV ONE (08:43)
--- NOTE | 2025-08-13 17:07 | PROGRESS NOTE- Residence ---
Progress Note - Resident Providers to CC Resident Creating Document: JOSE KURTZ RES ~ Antibiotic Timeout Antibiotic Ordered?: No Subjective Patient was seen and examined on bedside, reports he is feeling better ,denies pain over neck area. Objective Vital Signs Date Time Temp Pulse Resp B/P (MAP) Pulse Ox O2 Delivery O2 Flow Rate FiO2 08/13/25 16:00 98.5 85 13 130/73 (92) 94 Nasal Cannula 3.0 08/13/25 08:00 32 Result Diagram: 08/13/2552008/13/25520 General: awake, alert oriented to place, time, and person HEENT: No pallor present, no icterus, moist mucous membranes Lacerations in forehead.left eye erythmematous. Neck: No masses and tenderness C-Collar present Resp: Unlabored. Lungs clear to auscultation bilaterally. Chest: Normal expansion. dressing noted which clean and dry. Cardiovascular: Regular Rate and rhythm, normal S1 and S2 without murmur, rub or gallop Abdomen: Soft and non tender in epigastrium, no organomegaly, no guarding and rigidity, bowel sounds present Neuro: No focal weakness in the upper and lower limb muscles, power of the muscles 5/5 bilateral upper and lower extremities, normal reflexes bilaterally. Cranial nerves intact Extremities: No cyanosis,clubbing or edema Skin: Warm and Dry. Psych: Normal affect Coagulation Studies Laboratory Tests Test 08/11/25 05:40 08/13/25 05:21 Activated Partial Thromboplast Time 34 SECONDS (22-32) H Prothrombin Time 10.9 SECONDS (9.0-12.0) INR International Normalized Ratio 1.1 INR Coagulation Comments Advance Care Planning Advanced Care plannin - 30 Minutes Assessment Assessment 89-year-old male patient presented to the hospital after a mechanical fall. Plan Plan Mechanical Fall Cervical Spine Fracture Cervical Spine CT shows: Axially-oriented fracture extending through the C4-C5 disc space, extending through the thick calcification of the anterior longitudinal ligament, and possibly also C5 superior endplate. CT head: No acute intracranial abnormality. Forehead laceration repaired in ER ED physician consulted Dr. Som Bethea, a surgeon at [facility]. He reviewed the imaging and assessed the this is most likely nonoperative and the patient can be placed in a C-collar with pain control and have outpatient follow up in the neurosurgery clinic. On Cervical collar. No numbnes or weakness. Pain meds as needed. 08/11/2025: Dr. Fernandez was consulted today reassess imaging of the patient who mentioned that the patient she will follow-up as an outpatient, office phone number given by Dr. Fernandez: [phone]. Plan: The patient will be discharged to rehab service tomorrow. Syncope: Orthostatic hypotension-negative: Head CT: No acute intracranial abnormality. 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 Any narrowing is less than 50%. MRI head could not be performed because patient was not able to lie flat even with pain meds because of pain in neck as he had cervical fracture. Continue to monitor. Possibly community-acquired pneumonia Chest x-ray: Increased interstital prominence. This may represent pulmonary vascular congestion and/or viral pneumonia. Sirs criteria not met WBC 12.2 Procal normal On ceftriaxone 1 g IV to be completed on 08/13/2025 COPD not in acute excerabation On 3 L of oxygen baseline DuoNebs Q4 PRN Incentive spirometry Obstructive Sleep Apnea Uses CPAP at home will continue CPAP Atrial fibrillation-Rate is controlled [id number] score: 3 EKG shows sinus rhythm Flecainide 50 mg b.i.d Eliquis 2.5 mg b.i.d. Left Eye Conjuctivitis In view of this started ceftriaxone drops Q6h Hypertension Continue amlodipine 2.5 mg BID, 2 Tab PO daily Chronic kidney disease Stage 3a Creatinine 1.31 Baseline 1.22 Continue to monitor CMP. Benign Prostatic Hyperplasia Continue tamsulosin 0.4 mg daily Code status: Full code DVT prophylaxis: Eliquis Analgesia/sedation: [place]/Contin Line/tube: PIV GI prophylaxis: Protonix Nutrition: Heart healthy diet PT: Yes Prognosis: Guarded Disposition: Continue medical management. Neurosurgeon Dr. Fernandez consulted, recommended follow-up as an outpatient.,RPA will take Patient on . Jose Kurtz PGY 1 IM Date of Service: Aug 13, 2025 Billing Provider: FILIBERTO TODD MD Common Visit Codes: [id number] INP/OBS CARE(HIGH) JOSE KURTZ, RES Aug 13, 2025 17:07 FILIBERTO TODD MD Aug 15, 2025 16:16
[2025-08-13] MEDS: ipratropium/albuterol 3ml nebule NEB PRN (17:57)
[2025-08-14] VITALS (12 sets, daily range): BP systolic 115–156; BP diastolic 60–82; PULSE 69–98; RESP 12–20; TEMP 97.4–98.7; O2SAT 92–99
[2025-08-14] MEDS: guaiFENesin ER 600mg tablet PO SCH (12:28)
[2025-08-14] MEDS: magnesium hydroxide 30ml (MOM) UD suspension PO PRN (13:36)
--- NOTE | 2025-08-14 19:25 | DISCHARGE SUMMARY-Residence ---
Discharge Summary Providers to CC Resident Creating Document: JOSE GREENWOOD RES ~ Discharge Summary Admission Diagnosis: Fall Hospital Course DATE OF ADMISSION: 08/08/25 DATE OF DISCHARGE: 08/15/25 Discharge Diagnosis\Comment: Cervical Spine Fracture Bacterial Pneumonia gram postive and gram negative Acute hypoxemic respiratory failure possibly secondary to pneumonia COPD not in acute excerabation Obstructive Sleep Apnea Atrial fibrillation Left Eye Conjuctivitis Hypertension Chronic kidney disease Benign Prostatic Hyperplasia Operations\Procedures: none Consultants: neurosurgeon Complications: none Condition on DC: Discharge Summary: Hospital Course This is an 89-year-old male with past medical history of AFib and stroke presented in ER after a fall from bed last night.He reports that he fell out of the bed while sleeping striking his head and experienced moderate amount of bleeding from the scalp at the time of injury, there was no loss of consciousness as per his . CT head was performed which did not show any acute intracranial abnormality, carotid ultrasound showed Atherosclerotic vascular disease with no hemodynamically significant stenosis. Patient also had neck pain and cervical spine showed fracture of the cervical vertebra, neurosurgeon was consulted who recommended neck collar and outpatient follow up. MRI head could not be performed because patient was not able to lie flat even with pain meds because of pain in neck as he had cervical fracture. Orthostatic vitals were negative, in view of possible pneumonia chest x-ray showed pulmonary vascular congestion WBC for elevated patient five day course of ceftriaxone. He also had left eye conjunctivitis for which we started ceftriaxone drops Q6h Apart from that patient also had history of COPD for which he was placed on 3 L of oxygen which is his baseline, duonebs Q4h prn were in place, as he also had history of AFib rate was controlled his home medication ,flecainide and stroke prevention Eliiquis was continued, BPH tamsulosin was continued. 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 Any narrowing is less than 50%. Cervical Spine CT FINDINGS: There is an axially-oriented fracture of uncertain timing extending through the C4-C5 disc and possibly also involving the superior endplate of C5 and extending through the thick calcification of the anterior longitudinal ligament (image 56, series 602). There is slight retrolisthesis C4 on C5 which appears new compared with the prior MRI. No other fractures are identified about the lumbar spine. There are postoperative changes of laminectomy C4-C7 without presence of metallic fixation hardware. There are thick bridging calcifications along the anterior margin of the cervical spine and upper thoracic spine. There is a dvanced degenerative disc disease and facet arthropathy with [id number]-[id number] spinal canal stenosis at C3-C4 and T1-T2. There is significant neural foraminal stenosis at C3-C4 bilaterally, C4-C5 bilaterally, C5-C6 bilaterally, C6-C7 bilaterally, C7-T1 on the left. There is emphysema and scarring of the lung apices. IMPRESSION: 1. Axially-oriented fracture extending through the C4-C5 disc space, extending through the thick calcification of the anterior longitudinal ligament, and possi travon also C5 superior endplate. This fracture may be acute or subacute, favor acute. This fracture is new compared with MRI dated 12/25/2021. Consider follow- up noncontrast MRI of the cervical spine for better characterization of the fracture line and better characterization of fracture timing. 2. Cervical and upper thoracic spondylosis with thick bridging calcifications and some degree of ankylosis. This appearance may be seen with DISH or ankylosing spondylitis. 3. Postoperative changes of laminectomy C4-C7 without presence of metallic fixation hardware. 4. Degenerative disc disease and facet arthropathy cause multilevel significant neural foraminal stenosis as detailed above. 5. Wwit-yt-cgqbokzp spinal canal stenosis C3-C4 and T1-T2. 6. Emphysema and scarring in the lung apices. Critical findings Critical Result: Cervical spine fracture. Head CT FINDINGS: There is no evidence of acute intracranial hemorrhage, extra-axial collection, mass effect, midline shift, herniation or hydrocephalus. The ventricles, sulci and cisterns are age appropriate. Right occipital parietal encephalomalacia. The easley-white differentiation is intact. Patchy periventricular and subcortical white matter hypoattenuation is nonspecific but may be related to small vessel ischemic disease. The visualized paranasal sinuses and mastoid air cells are clear. The surrounding soft tissues and osseous structures are unremarkable. IMPRESSION: No acute intracranial abnormality. *Problems/Diagnosis: (1) BPH (benign prostatic hyperplasia) Status: Chronic Total Time Spent on D/C: > 30 Minutes Date of Service: Aug 15, 2025 Billing Provider: FILIBERTO TODD MD Common Visit Codes: [id number] DISCH DAY >30min Addendum Code blue: Arrived to bedside of patient receiving active CPR secondary to code blue. Reports that patient has suddenly became bradycardia and lost pulses. He is awaiting for transfer to rehab facility. Patient was intubated using GlideScope with 3. Mac blade and bougie in the light of patient's reported cervical fracture. First attempt failed as curve of bougie was prohibiting entry into the vocal cords. Bougie was then reversed in his easily slipped through the vocal cords. 8. ET tube placed over bougie and exchanged in secured at 23 cm. Good color change, good fogging of tube and good bilateral breath sounds. Multiple rounds of epinephrine bicarb and calcium administered. Patient remained flat line until towards the end of the code a nonpalpable pulse a very low rate was seen on rhythm. Considering pulseless electrical activity code was resumed. Bedside ultrasound showed no meaningful cardiac activity. After consulting the team for any additional medical interventions we agreed that additional medical intervention would be a futile and patient was pronounced . Time was 5:23 a.m. JOSE GREENWOOD, SAÚL Aug 14, 2025 19:25 JAILENE PARKER MD Aug 15, 2025 05:56 FILIBERTO TODD MD Aug 15, 2025 16:15
[2025-08-14] MEDS: albuterol 2.5 MG/3 ML nebule NEB ONE (20:26)
[2025-08-15 02:00] VITALS: BP 148/67; PULSE 86; RESP 11; TEMP 97.9; O2SAT 94
[2025-08-15] MEDS ORDERED: sodium bicarbonate (8.4%) 1 mEq/ml syringe ONE ×2 (05:23→08:00)
[2025-08-15 05:37] VITALS: PULSE 0; RESP 0
--- NOTE | 2025-08-15 07:12 | PROGRESS NOTE- Residence ---
Progress Note - Resident Providers to CC Resident Creating Document: SCOTT KURTZ RES ~ Antibiotic Timeout Antibiotic Ordered?: Yes Subjective This is late progress note for 08/14/25. Patient was seen and examined on bedside, reports he is feeling better ,denies pain over neck area.. Objective Vital Signs Date Time Temp Pulse Resp B/P (MAP) Pulse Ox O2 Delivery O2 Flow Rate FiO2 08/15/25 05:37 0 0 Ambu-Bag 08/15/25 02:00 97.9 148/67 (94) 94 3.0 08/14/25 20:28 32 Result Diagram: 08/13/2552008/13/25520 General: awake, alert oriented to place, time, and person HEENT: No pallor present, no icterus, moist mucous membranes Lacerations in forehead.left eye erythmematous. Neck: No masses and tenderness C-Collar present Resp: Unlabored. Lungs clear to auscultation bilaterally. Chest: Normal expansion. dressing noted which clean and dry. Cardiovascular: Regular Rate and rhythm, normal S1 and S2 without murmur, rub or gallop Abdomen: Soft and non tender in epigastrium, no organomegaly, no guarding and rigidity, bowel sounds present Neuro: No focal weakness in the upper and lower limb muscles, power of the muscles 5/5 bilateral upper and lower extremities, normal reflexes bilaterally. Cranial nerves intact Extremities: No cyanosis,clubbing or edema Skin: Warm and Dry. Psych: Normal affect Coagulation Studies Laboratory Tests Test 08/11/25 05:40 08/13/25 05:21 Activated Partial Thromboplast Time 34 SECONDS (22-32) H Prothrombin Time 10.9 SECONDS (9.0-12.0) INR International Normalized Ratio 1.1 INR Coagulation Comments Advance Care Planning Advanced Care plannin - 30 Minutes Assessment Assessment 89-year-old male patient presented to the hospital after a mechanical fall. Plan Plan Mechanical Fall Cervical Spine Fracture Cervical Spine CT shows: Axially-oriented fracture extending through the C4-C5 disc space, extending through the thick calcification of the anterior longitudinal ligament, and possibly also C5 superior endplate. CT head: No acute intracranial abnormality. Forehead laceration repaired in ER ED physician consulted Dr. Som Bethea, a surgeon at [facility]. He reviewed the imaging and assessed the this is most likely nonoperative and the patient can be placed in a C-collar with pain control and have outpatient follow up in the neurosurgery clinic. On Cervical collar. No numbnes or weakness. Pain meds as needed. 08/11/2025: Dr. Fernandez was consulted today reassess imaging of the patient who mentioned that the patient she will follow-up as an outpatient, office phone number given by Dr. Fernandez: [phone]. Plan: The patient will be discharged to rehab service tomorrow. Syncope: Orthostatic hypotension-negative: Head CT: No acute intracranial abnormality. 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 Any narrowing is less than 50%. MRI head could not be performed because patient was not able to lie flat even with pain meds because of pain in neck as he had cervical fracture. Continue to monitor. Possibly community-acquired pneumonia Chest x-ray: Increased interstital prominence. This may represent pulmonary vascular congestion and/or viral pneumonia. Sirs criteria not met WBC 12.2 Procal normal On ceftriaxone 1 g IV to be completed on 08/13/2025 COPD not in acute excerabation On 3 L of oxygen baseline DuoNebs Q4 PRN Incentive spirometry Obstructive Sleep Apnea Uses CPAP at home Atrial fibrillation-Rate is controlled [id number] score: 3 EKG shows sinus rhythm Flecainide 50 mg b.i.d Eliquis 2.5 mg b.i.d. Left Eye Conjuctivitis In view of this started ceftriaxone drops Q6h Chest congestion Patient was started on Mucinex and albuterol. Hypertension Continue amlodipine 2.5 mg BID, 2 Tab PO daily Chronic kidney disease Stage 3a Creatinine 1.31 Baseline 1.22 Continue to monitor CMP. Benign Prostatic Hyperplasia Continue tamsulosin 0.4 mg daily Code status: Full code DVT prophylaxis: Eliquis Analgesia/sedation: [place]/Contin Disposition: Continue medical management. Neurosurgeon Dr. Fernandez consulted, recommended follow-up as an outpatient.,RPA will take Patient. Scott Kurtz PGY 1 IM Date of Service: Aug 14, 2025 Billing Provider: FILIBERTO TODD MD Common Visit Codes: [id number] INP/OBS CARE(HIGH) SCOTT KURTZ, SAÚL Aug 15, 2025 07:12 FILIBERTO TODD MD Aug 15, 2025 16:16
[2025-08-15] MEDS ORDERED: atropine 0.1mg/ml 10ml syringe ONE (08:00)
[2025-08-15] MEDS ORDERED: epiNEPHrine 0.1mg/ml 10ml syringe ONE (08:00)
[2025-08-15] MEDS ORDERED: sod chloride 0.9% 10ml flush syringe IV ONE (08:00)
[2025-08-15] MEDS ORDERED: calcium chloride 100 MG/1 ML inj IV ONE (08:00)
== END 2025-08-15 10:16 | DRG 551 ==
LOC: ER 07:46 → ED HOLD 12:35 → PCU 3S 17:15
PROVIDERS: ADMIT Internal Medicine; ATTEND Internal Medicine
PROC: 0HQ1XZZ Repair Face Skin, External Approach (ICD-10-PCS; principal; 2025-08-08)
PROC: 5A12012 Performance of Cardiac Output, Single, Manual (ICD-10-PCS; 2025-08-15)
DX: S12.300A Unspecified displaced fracture of fourth cervical vertebra, initial encounter for closed fracture (principal); J15.69 Pneumonia due to other Gram-negative bacteria; J15.9 Unspecified bacterial pneumonia; J96.01 Acute respiratory failure with hypoxia; J44.0 Chronic obstructive pulmonary disease with (acute) lower respiratory infection; I13.0 Hypertensive heart and chronic kidney disease with heart failure and stage 1 through stage 4 chronic kidney disease, or unspecified chronic kidney disease; S01.81XA Laceration without foreign body of other part of head, initial encounter; H10.9 Unspecified conjunctivitis; Z79.01 Long term (current) use of anticoagulants; I46.9 Cardiac arrest, cause unspecified; N18.31 Chronic kidney disease, stage 3a; J43.9 Emphysema, unspecified; G47.33 Obstructive sleep apnea (adult) (pediatric); Y92.89 Other specified places as the place of occurrence of the external cause; W18.39XA Other fall on same level, initial encounter; Y93.89 Activity, other specified; Y99.8 Other external cause status; Z79.82 Long term (current) use of aspirin; Z79.899 Other long term (current) drug therapy; Z90.49 Acquired absence of other specified parts of digestive tract
CPT/HCPCS: 12013; 36415; 70450; 71045; 72125; 80048; 80053; 80061; 80305; 81001; 82948; 83735; 84100; 84132; 84145; 84443; 84484; 85025; 85610; 85730; 87081; 93005; 93880; 94640; 94760; 97110; 97116; 97163; 97530; 99285; A6449; A6590; G0378; J0169; J0461; J0696; J2270; J3490; J7040; L0172